=== PATIENT | male | born 1965 | race Caucasian/White ===

== ENCOUNTER 2016-07-22 14:32 | Inpatient (IN) | payer MEDICAID ==
--- NOTE | 2016-07-22 18:36 | ED ---
Abdominal Pain/Male - HPI Summary HPI Summary: Patient presents for delayed evaluation of abdominal pain and constipation. He has been dealing with slowly progressively early satiety, unintentional weight loss, difficulty with BM. Denies systemic symptoms, new or bad foods. Does endorse mother of throat cancer, father of metastatic throat cancer, brother had early colon cancer. Has not had screening endoscopy or medical care for more than 5 years. No allev factors attempted. Abdominal pain is cramping and intermittent. Not food associated. - History of Current Complaint Chief Complaint: EDAbdPain Stated Complaint: ABD PAIN Time Seen by Provider: 07/22/16 18:22 Hx Obtained From: Patient, Family/Sponge Maker - Onset/Duration: Gradual Onset, Lasting Weeks, Still Present Timing: Lasting Weeks Severity Initially: Mild Severity Currently: Moderate Pain Intensity: 2 - Allergies/Home Medications Allergies/Adverse Reactions: Allergies Allergy/AdvReac Type Severity Reaction Status Date / Time No Known Allergies Allergy Verified 07/22/16 18:39 Home Medications: Home Medications NK [No Home Medications Reported] 07/23/16 [History Confirmed 07/23/16] PMH/Surg Hx/FS Hx/Imm Hx Infectious Disease History: No Infectious Disease History: Denies: Traveled Outside the [place] in Last 30 Days Review of Systems Negative: Fever, Chills Cardiovascular: Negative Respiratory: Negative Positive: Abdominal Pain All Other Systems Reviewed And Are Negative: Yes Physical Exam Triage Information Reviewed: Yes Vital Signs On Initial Exam: Initial Vitals Temp Pulse Resp BP Pulse Ox 99.2 F 87 16 158/103 98 07/22/16 14:34 07/22/16 14:34 07/22/16 14:34 07/22/16 14:34 07/22/16 14:34 Vital Signs Reviewed: Yes Appearance: Positive: Well-Appearing, No Pain Distress, Well-Nourished Skin: Positive: Warm, Skin Color Reflects Adequate Perfusion, Dry ENT: Positive: Normal ENT inspection, Hearing grossly normal Neck: Positive: Supple, Nontender, No Lymphadenopathy Respiratory/Lung Sounds: Positive: Clear to Auscultation, Breath Sounds Present Cardiovascular: Positive: Normal, RRR, Pulses are Symmetrical in both Upper and Lower Extremities Abdomen Description: Positive: Nontender, No Organomegaly, Distended, Other: - Palpable LUQ abdominal pain. No stool in rectal vault. Negative: Soft, Bruit, CVA Tenderness (R), CVA Tenderness (L), Guarding, Hernia @, Hepatomegaly Male Genital Exam: Positive: normal genitalia, normal prostate. Negative: lesions, scrotum tenderness (R), scrotum tenderness (L), testicular tenderness ( R), testicular tenderness (L) Musculoskeletal: Positive: Normal, Strength/ROM Intact Neurological: Positive: Normal, Sensory/Motor Intact, Alert, Oriented to Person Place, Time, CN Intact II-III, Reflexes Intact, NV Bundle Intact Distally, Normal Gait Diagnostics - Vital Signs Vital Signs Temp Pulse Resp BP Pulse Ox 07/22/16 18:00 98.6 F 104 20 148/92 99 07/22/16 15:49 99.5 F 111 20 154/98 99 07/22/16 14:34 99.2 F 87 16 158/103 98 - Laboratory Result Diagrams: 07/22/16 21:30 07/22/16 21:30 Lab Statement: Any lab studies that have been ordered have been reviewed, and results considered in the medical decision making process. Abdominal Pain Fem Course/Dx - Diagnoses Differential Diagnosis/HQI/PQRI: Abdominal Aortic Aneurysm, Constipation, Gall Bladder Disease, Pancreatitis, Peptic Ulcer Disease, Other - Unclear if this palpable mass is early malignancy with symptoms. CT for structural cause. Provider Diagnoses: Lymphoma Discharge - Discharge Plan Condition: Good Disposition: ADMITTED TO [facility]
[2016-07-22 21:50] LABS: Hematocrit 49 % (42-52); Hemoglobin 16.1 g/dl (14.0-18.0); Mean Corpuscular HGB Conc 33 g/dl (31-36); Mean Corpuscular Hemoglobin 30 pg (27-31); Mean Corpuscular Volume 91 fL (80-94); Mean Platelet Volume 9 um3 (7.4-10.4); Red Blood Count 5.36 10^6/ul (4.0-5.4); Red Cell Distribution Width 14 % (10.5-15); White Blood Count 7.9 10^3/ul (3.5-10.8)
[2016-07-22 22:01] LABS: Urine Bacteria Absent (Absent); Urine Bilirubin Negative (Negative); Urine Glucose Negative (Negative); Urine Nitrite Negative (Negative)
[2016-07-22 22:03] LABS: Albumin 4.2 g/dL (3.2-5.2); BUN/Creatinine Ratio 10.5 (8-20); Calcium 10.1 mg/dL (8.6-10.3); EGFR African American 121.6 (>60); EGFR Non-African American 94.5 (>60); Globulin 2.9 g/dL (2-4); Potassium 4.1 mmol/L (3.5-5.0); Total Bilirubin 0.6 mg/dL (0.2-1.0); Total Protein 7.1 g/dL (6.4-8.9)
[2016-07-22] MEDS ORDERED: Iohexol 300* (CONTRAST) 10 ML SDV IV ONE (22:37)
[2016-07-23] MEDS ORDERED: Acetaminophen SUPP* 650 MG SUPP PR PRN (01:34)
[2016-07-23] MEDS ORDERED: Analgesic BALM* 114 GM TOPICAL PRN (03:22)
[2016-07-23 05:16] LABS: Carcinoembryonic Antigen 1.9 ng/mL (0.1-5.0)
[2016-07-23] MEDS ORDERED: Heparin VIAL(*) 5000 UNITS/ML VIAL (FIVE THOUSAND) SUBCUT SCH ×2 (06:00→22:00)
--- NOTE | 2016-07-23 07:58 | RAD ---
CLINICAL HISTORY: Abdominal pain COMPARISON: None TECHNIQUE: Multiple contiguous axial CT scans were obtained of the abdomen and pelvis after the administration of intravenous contrast. Coronal and sagittal multiplanar reformations are submitted for review. Oral contrast was administered. ] Images FINDINGS: LUNG BASES: There is bulky paraesophageal lymphadenopathy LIVER: There are transient hepatic attenuation differences involving the left lobe. BILE DUCTS: There is no intrahepatic or extrahepatic biliary dilatation. GALLBLADDER: The gallbladder is incompletely distended. There is a gallstone with gallbladder wall thickening of the fundus PANCREAS: The pancreas is displaced anteriorly by markedly bulky retroperitoneal lymphadenopathy. SPLEEN: The spleen measures 14.5 x 5.9 x 13.1 cm. UPPER GI TRACT: Evaluation of the gastrointestinal tract is limited by incomplete gastric distention. The upper GI tract is unremarkable. SMALL BOWEL AND MESENTERY: The small bowel is normal in contour, course, and caliber. There is no obstruction or dilatation. There is nodularity of the omentum along the inferior abdomen. COLON: There is mucosal thickening of the sigmoid colon. ADRENALS: Normal bilaterally. KIDNEYS: The kidneys are normal in shape, size, contour, and axis. There is no hydronephrosis or nephrolithiasis. BLADDER: The bladder is incompletely distended but is grossly normal. PELVIC ORGANS: The prostate gland is normal. The seminal vesicles are symmetric. AORTA: The aorta is encased by extensive bulky retroperitoneal lymphadenopathy. IVC: The IVC is displaced and partially effaced by extensive bulky retroperitoneal lymphadenopathy. There is questionable filling defect of the left common femoral and external iliac veins. LYMPH NODES: There is a confluent soft tissue mass of the retroperitoneum consistent with massive bulky retroperitoneal lymphadenopathy measuring 15.2 x 12.8 x 14.3 cm in size, approximately. As noted above, there is paraesophageal lymphadenopathy. There are prominent right iliac chain lymph nodes. There are prominent and enlarged mesenteric lymph nodes. ABDOMINAL WALL: There is no evidence for abdominal wall hernia. BONES AND SOFT TISSUES: There are mild diffuse degenerative changes. OTHER: There is trace free fluid within pelvis. There are trace bilateral pleural effusions IMPRESSION: 1. SOFT TISSUE MASS IN THE RETROPERITONEUM MOST CONSISTENT WITH EXTENSIVE BULKY LYMPHADENOPATHY N THE AORTA DISPLACING THE VISCERA. THERE IS ASSOCIATED PARAESOPHAGEAL LYMPHADENOPATHY, ENLARGED MESENTERIC LYMPH NODES, AND PROMINENT ILIAC CHAIN LYMPH NODES. THE APPEARANCE IS MOST SUGGESTIVE OF LYMPHOMA. 2. THERE IS NODULARITY OF THE OMENTUM. GIVEN THE PRESENCE OF THE RETROPERITONEAL LYMPHADENOPATHY, THIS MAY REPRESENT CARCINOMATOSIS. 3. THE SPLEEN IS MILDLY ENLARGED. 4. A GALLSTONE IS NOTED WITH GALLBLADDER WALL THICKENING TOWARDS THE FUNDUS WHICH MAY REPRESENT CHRONIC CHOLECYSTITIS. 5. THERE IS TRACE AMOUNT OF FREE FLUID WITHIN THE PELVIS. THERE ARE TRACE BILATERAL PLEURAL EFFUSIONS. 6. THERE IS QUESTIONABLE FILLING DEFECT OF THE LEFT COMMON FEMORAL AND EXTERNAL ILIAC VEINS. THE DIFFERENTIAL INCLUDES DVT. CONSIDER CORRELATION WITH ULTRASOUND OF THE LEFT LOWER EXTREMITY..
--- NOTE | 2016-07-23 09:17 | HP ---
HISTORY AND PHYSICAL: DATE OF ADMISSION: 07/23/16 He has no primary care physician. CHIEF COMPLAINT: Abdominal pain. HISTORY OF PRESENT ILLNESS: The patient is a 51-year-old gentleman who, for several months, has had discomfort in his abdomen. He was taking Nexium which seemed to help, and also smoking marijuana which seemed to help. However, every time he stopped the Nexium, he said he would have to go to the bathroom and had trouble going because he was constipated. He also notes he's had a significant weight loss since this past summer and he used to weigh 220. He currently weighs 175 pounds. According to his , he cannot even get comfortable at night; he's constantly moving and he has decreased appetite. He used to be able to eat a full T-bone steak and he's yasir if he gets half way through it now. His legs have been achy as well lately too. The patient had a CT scan in the ED which did show a significant abdominal mass. PAST MEDICAL HISTORY: He has no significant past medical history. MEDICATIONS: He is on no medications. ALLERGIES: He has no known drug allergies. FAMILY HISTORY: His mother in his 60s of unknown cause. His father in his 70s of unknown cause. He thinks they both had throat cancer, but not sure. SOCIAL HISTORY: He has been smoking 1 to 2 pack per day for 34 years. No alcohol. Occasional marijuana. 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 His daughter, Monet Zafar, is his healthcare proxy. REVIEW OF SYSTEMS: A 14-point review of systems is completed with the patient. All pertinent positives and negatives are in the history of present illness, otherwise it is negative. PHYSICAL EXAMINATION GENERAL: A very pleasant gentleman lying in bed, in no acute distress, but uncomfortable. VITAL SIGNS: Blood pressure 149/97, temperature 97.8 degrees, heart rate 86 beats per minute, respiratory rate 20 breaths per minute, pulse ox 100%. HEENT: Normocephalic and atraumatic. Pupils are equal, round and reactive to light. Moist mucous membranes. NECK: Supple. No JVD, bruits, palpable thyroid or lymphadenopathy. CHEST: Clear to auscultation and percussion bilaterally. CARDIOVASCULAR: S1, S2 appreciated. Regular rate and rhythm. ABDOMEN: Positive bowel sounds. Protuberant indurated area, consistent with a mass in his mid epigastric area. It is tender. There is no rebound, guarding, or rigidity. EXTREMITIES: No cyanosis, clubbing, or edema. +2 peripheral pulses bilaterally NEUROLOGIC: Alert and oriented x3. Moves all extremities. SKIN: No distinct rashes or abnormalities. LABORATORY DATA: White count 7.9, hemoglobin 6.1, hematocrit 49, platelets 214. His sodium is 137, potassium 4.1, chloride 103, CO2 27, BUN 9, creatinine 0.86, glucose 92. Urinalysis shows +[address] scan of his abdomen and pelvis shows a very large intra-abdominal mass measuring 16 cm x 14 cm x 14 cm. This likely represents a mass of the intra- abdominal lymphadenopathy that emanates in the meso peritoneum and extends to the anterior abdominal wall. Lymphadenopathy extends up to the retrocrural lesions and visualized portions of the mediastinum. There also separate large intraperitoneal lymph nodes. Major diagnostic consideration of lymphoproliferative disease such as lymphoma. The large intraabdominal mass in case is superior mesenteric artery and renal arteries; however, they are not included at this time. The distal portion of the superior vena cava is not well visualized and could not be compressed. Nodularity of the omentum is noted. This could represent a omental metastatic carcinomatosis. Tiny vessels of the anterior peritoneum could represent venous collaterals from venous compression. No bowel obstruction or free air. There is some thickening of the kaufman of the sigmoid colon. Colitis is possible venous congestion. Small amount of fluid in the pelvic gutter and some enhancement of the peritoneal carcinomatosis enhancement. Peritonitis could also look like this. Slightly heterogenous liver. Gall stone noted. Spleen enlarged. Normal adrenal glands. Normal pancreas. Normal kidney, urinary tracts. Trace pleural effusions. ASSESSMENT AND PLAN: 1. Abdominal mass, possibly lymphoma. We will schedule the patient for ultrasound- guided biopsy in the a.m.; likely benefit from oncology consult. We will add LDH to his labs. The patient will need a PCP and oncology likely. 2. FEN. Regular diet. 3. DVT prophylaxis. Heparin subcu. 4. The patient is a full code. TIME SPENT: Over 75 minutes were spent on this H and P, more than 40 minutes of which were spent in direct [id number] contact with the patient in evaluation, physical exam, counseling, and coordination of care. [id number]/[facility] #: [id number] MTDD
--- NOTE | 2016-07-23 09:37 | PN ---
Subjective Date of Service: 07/23/16 Interval History: Patient seen this morning. Reports continued intermittent abdominal discomfort, none presently. Reports 40+ lb weight loss in the last 6-8 months. Denies night sweats. No leg swelling but occasional B/L LE leg pains. Family History: Unchanged from Admission Social History: Unchanged from Admission Past Medical History: Unchanged from Admission Objective Active Medications: Acetaminophen (Tylenol Supp*) 650 mg [place] Q4H PRN Heparin Sodium (Porcine) (Heparin Vial(*)) 5,000 units SUBCUT Q8HR DARRON Multi-Ingredient Liniment/Rub (Moiz Lagunas*) 1 applic TOPICAL Q6H PRN Vital Signs 07/23/16 07/23/16 07/23/16 02:27 02:30 02:37 Temperature 97.8 F Pulse Rate 86 Respiratory 20 20 Rate Blood Pressure 149/97 (mmHg) O2 Sat by Pulse 99 Oximetry 07/23/16 07/23/16 07/23/16 04:01 07:31 08:00 Temperature 98.3 F 97.2 F Pulse Rate 88 41 Respiratory 18 17 18 Rate Blood Pressure 149/97 156/98 (mmHg) O2 Sat by Pulse 95 99 Oximetry Oxygen Devices in Use Now: None Appearance: Middle-aged, M, laying in bed in NAD Eyes: No Scleral Icterus Ears/Nose/Mouth/Throat: Mucous Membranes Moist Neck: NL Appearance and Movements; NL JVP Respiratory: Symmetrical Chest Expansion and Respiratory Effort, Clear to Auscultation Cardiovascular: NL Sounds; No Murmurs; No JVD, RRR Abdominal: - - Palpable abdominal mass, +BS, non-tender Lymphatic: No Cervical Adenopathy, No Axillary Adenopathy, No Inguinal Adenopathy Extremities: No Edema Skin: No Rash or Ulcers Neurological: Alert and Oriented x 3 Result Diagrams: 07/22/16 21:30 07/22/16 21:30 Assess/Plan/Problems-Billing Assessment: Large soft tissue mass and significant LAD concerning for malignancy in a 51 yo M with no significant PMH - Patient Problems (1) Soft tissue mass Current Visit: Yes Comment: w/associated LAD. Awaiting US guided biopsy. Add on LDH. Will consult Oncology. Check LE doppler for ?DVT (2) DVT prophylaxis Current Visit: Yes Comment: HSQ
--- NOTE | 2016-07-23 10:57 | RAD ---
INDICATION: Abdominal mass with vascular compression. Question of thrombosis of the LEFT common external iliac vein on CT. COMPARISON: July 23, 2016 CT abdomen. TECHNIQUE: Hylton scale, color Doppler, and spectral analysis of the deep veins of the LEFT lower extremity. Vessel compression, phasicity, and augmentation assessed. REPORT: The LEFT common femoral, great saphenous, profunda femoral, femoral, popliteal, peroneal, and posterior tibial veins are patent. Patency of the contralateral common femoral vein documented. IMPRESSION: No evidence for LEFT lower extremity deep venous thrombosis.
[2016-07-23] MEDS ORDERED: fentaNYL* 50 MCG/ML 2 ML VIAL (100 MCG VIAL) ONE (13:55)
--- NOTE | 2016-07-23 14:47 | RAD ---
CPT II Codes: 6100F INDICATION: Retroperitoneal mass extending to the anterior abdominal wall. COMPARISON: Same day CT of the abdomen and pelvis The benefits and risks of procedure explained to the patient and the patient signed informed consent. Multiple images of the lower abdomen were obtained. The mass in question was identified and a percutaneous tract was determined. A time out was performed before beginning the procedure. The patient was prepped and draped in the usual sterile fashion. The skin and tissue overlying the lymph node were anesthetized with 1% lidocaine. Percutaneously, a fine needle aspiration was obtained and provided to the attending cytopathologist. The cytopathologist indicated that preliminary evaluation demonstrated adequate sampling for diagnosis. According to the same technique as above additional fine-needle aspirations were acquired 2 more times to assure adequate diagnostic volume. A total of 3 fine-needle aspirations were acquired with sonographic guidance. The post procedure ultrasound demonstrates no evidence for hematoma. The site was dressed with a sterile dressing. The patient tolerated procedure well without incident. IMPRESSION: Uncomplicated ultrasound-guided fine-needle aspiration of abdominal mass.
[2016-07-23 18:01] VITALS: BP 150/83
--- NOTE | 2016-07-23 22:09 | CONS ---
CONSULTATION REPORT: DATE OF CONSULT: 07/23/16 REFERRING PHYSICIAN: Sam Toussaint MD. REASON FOR CONSULTATION: Abdominal mass. HISTORY OF PRESENT ILLNESS: This is a 51-year-old male who presented with approximately 4 months of progressive fatigue, worse over the last several weeks. He also had a 45-pound weight loss over the same period of time. He says he has tried to eat . He has been smoking marijuana, which has helped a little. He has diffuse abdominal pain, treated initially with Nexium but then that stopped working. Pain is made worse by eating. He has also had back pain that has been present for about 6 months and has been progressive. He has no fever, chills, or night sweats, no cough, no shortness of breath. He has not noticed any skin changes. No peripheral lymphadenopathy. PAST MEDICAL HISTORY: None. PAST SURGICAL HISTORY: He had adenoid removed. MEDICATIONS: None. ALLERGIES: None. FAMILY HISTORY: Lot of cancer in the family. Mother, father, brother all of cancer, mostly throat and lung cancer. He is not really sure which one they had. SOCIAL HISTORY: Common law , two children and three grandchildren. He smokes a pack of cigarettes a day and marijuana daily. He does not drink alcohol. He works in [employer], wants to build [employer] teams. REVIEW OF SYSTEMS: As reviewed above, otherwise 14-point review negative. PHYSICAL EXAM: Temperature 98.1, BP 150/83, pulse 93, respirations 12, O2 sat 98%. HEENT: Mucosa moist. No lesions. Neck: With no lymphadenopathy. Lungs : Clear to auscultation bilaterally. No wheezes and he has good air movement. Heart: Regular rhythm. S1, S2. No murmurs or gallops. Abdomen: Large mass , nontender, over 20 cm. No splenomegaly. No palpable liver. Nodes: No peripheral lymphadenopathy. Skin: No rashes. Extremities: She has got +1 clubbing. No cyanosis, edema. Neurologic: CN II through XII intact. Strength 5/5 throughout. Alert and oriented x3. Normal gait. DIAGNOSTIC STUDIES/LAB DATA: Chemistries: Creatinine 0.68. Normal LFTs. Total protein. LDH not sent. He has normal blood counts. Slightly elevated monos. CT scan was reviewed with the patient. He has a large central abdominal pelvic mass. He has disposition of the kidneys with extension of the renal artery and the bowel is stretched around the lesion as well. There is no other clear lymphadenopathy. No lung lesions in the base. ASSESSMENT AND PLAN: A 51-year-old male with large pelvic mass. Highly suspicious for low-grade lymphoma. Differential diagnosis could also include higher intermediate grade lymphoma, other malignancies such as low-grade sarcoma , testicular cancer not likely. 1. He is going to go home from the hospital today, it will take several days to receive results of biopsy. 2. Suspicious enough for low-grade lymphoma. We are going to schedule a bone marrow biopsy for next week. 3. We will follow up in clinic in 2 weeks and plan further care. Potentially chemotherapy starting within the next 1 to 2 weeks. CC: [place] [id number]/[facility] #: [id number] MTDD
--- NOTE | 2016-07-24 13:24 | DS ---
DISCHARGE SUMMARY: DATE OF ADMISSION: 07/23/16 DATE OF DISCHARGE: 07/23/16 PRINCIPAL DISCHARGE DIAGNOSES: Abdominal mass and lymphadenopathy concerning for malignancy. STUDIES DONE DURING HOSPITALIZATION: CT abdomen and pelvis. Impression: Soft tissue mass in the r etroperitoneum, most consistent with extensive bulky lymphadenopathy in the aorta displacing the vis cera. There is associated paraesophageal lymphadenopathy, enlarged mesenteric lymph nodes, and prom inent iliac chain lymph nodes. The appearance is most suggestive of lymphoma. There is nodularity of the omentum given the presence of the retroperitoneal lymphadenopathy, this may represent a carci nomatosis. Spleen is mildly enlarged. A gallstone is noted in the gallbladder with wall thickening towards the fundus, which may represent chronic cholecystitis. There is trace amount of free fluid within the pelvis. There are trace bilateral pleural effusions. There is questionable filling defe ct in the left common femoral and external iliac veins. The differential includes DVT, consider clarissa elation with ultrasound of the left lower extremity. Left lower extremity Doppler. Impression: No evidence for left lower extremity deep venous thrombosis. DISCHARGE MEDICATION REGIMEN: None. HPI AND HOSPITAL SUMMARY: Please see the full history and physical by Dr. Alin Bro for full deta ils. Briefly, Mr. Rush is a 51-year-old man with no past medical history and little contact with [facility], who presents to the hospital with abdominal discomfort and significant weight loss as wel l as early satiety. The patient had a CT scan as above, which showed a large abdominal mass with ext ensive lymphadenopathy. The patient underwent an ultrasound-guided biopsy. His LDH was normal as w ere the majority of his labs. The patient was seen briefly by Dr. Perez and will follow up in the inic with Dr. Zambrano. He was also set up with a new PCP, Dr. Marin, with an appointment on . The patient's biopsy results are pending at this time. He will be discharged home and can follow up as an outpatient. TIME SPENT: Total time spent on this discharge was 45 minutes. This is a summary of the hospitaliz ation, please see the full medical record for further details. [id number]/[facility] #: [id number]
== END 2016-07-23 19:05 | disposition home or self-care (01) | DRG 681 ==
LOC: ED 14:32 → MED 07-23 01:52
PROVIDERS: ADMIT Internal Medicine; ATTEND Hospitalist
PROC: 07BC3ZX Excision of Pelvis Lymphatic, Percutaneous Approach, Diagnostic (ICD-10-PCS; principal; 2016-07-23)
DX: C85.93 Non-Hodgkin lymphoma, unspecified, intra-abdominal lymph nodes (principal); F17.210 Nicotine dependence, cigarettes, uncomplicated; R19.07 Generalized intra-abdominal and pelvic swelling, mass and lump; R59.1 Generalized enlarged lymph nodes; Z80.0 Family history of malignant neoplasm of digestive organs
CPT/HCPCS: 36415; 49180; 74177; 76942; 80053; 81003; 81015; 82378; 83615; 83690; 85025; 85610; 85730; 88172; 88173; 88184; 88185; 88188; 88305; 88341; 88342; J1644; J3010; Q9967

== ENCOUNTER 2016-08-11 05:54 | Day surgery (SDC) | payer MEDICAID, OTHER ==
[2016-08-11] MEDS ORDERED: Famotidine IV* 10 MG/ML 2 ML (20 mg) IV ONE (06:00)
[2016-08-11] MEDS ORDERED: Buffered Lidocaine 1% SYR 3ML* 3 ML/SYR SYRINGE INTRADERM ONE (06:00)
[2016-08-11] MEDS ORDERED: Famotidine IV* 10 MG/ML 2 ML (20 mg) ONE ×2 (06:06)
[2016-08-11] MEDS ORDERED: Lidocain 1% EPI 1:100,000 * 30 ML MDV ONE ×2 (07:03)
[2016-08-11] MEDS ORDERED: Propofol* 10 MG/ML 20 ML BTL IV PUSH ONE ×2 (07:34)
[2016-08-11] MEDS ORDERED: Midazolam* 1 MG/ML 5 ML VIAL (5 MG) ONE ×2 (07:34)
[2016-08-11] MEDS ORDERED: fentaNYL* 50 MCG/ML 2 ML VIAL (100 MCG VIAL) ONE ×2 (07:34)
[2016-08-11] MEDS ORDERED: Ondansetron INJ* 2 MG/ML VIAL ONE ×2 (07:34)
[2016-08-11] MEDS ORDERED: Dexamethasone IV* 4 MG/ML 1 ML (4 MG) ONE ×2 (07:34)
[2016-08-11] MEDS ORDERED: Lidocaine 2% PF * 5 ML VIAL ONE ×2 (07:34)
[2016-08-11] MEDS ORDERED: KETAMINE HCL* 50 MG/ML 10 ML VIAL ONE ×2 (07:34)
[2016-08-11] MEDS ORDERED: ceFAZolin 2 GM PREMIX (*) 2 GM/50 ML BAG IVPB ONE ×2 (07:37)
[2016-08-11] MEDS ORDERED: oxyCODONE/Acetamin 5/325 MG* TAB PO PRN (08:18)
[2016-08-11] MEDS ORDERED: Acetaminophen TAB* 325 MG PO PRN (08:18)
[2016-08-11] MEDS ORDERED: DiMENhydriNATE IV* 50 MG/ML VIAL IV PUSH PRN (08:18)
--- NOTE | 2016-08-11 08:35 | SURGPN ---
Brief Operative Note - Surgery Procedures: Procedures Pre-OP Diagnoses: Lymphoma Post-op Diagnosis: same Procedure: Insertion of powerport, needle in Surgeon: Bhavna Asst: none Anethesia: local, FLORENCE Rothman EBL: minimal IVF: minimal Specimen: none Drains: none 8Fr single lumen power port via R SCV
[2016-08-11 09:15] VITALS: BP 140/93
--- NOTE | 2016-08-11 09:16 | RAD ---
INDICATION: Power port catheter placement. COMPARISON: There are no prior studies available for comparison. TECHNIQUE: 14 seconds of intermittent fluoroscopic guidance were provided and 6 spot films of the chest centered on the right side in the operating room. FINDINGS: The films demonstrate placement of a PowerPort central venous catheter over guidewire. On the last image the catheter tip projects over the region of the right atrium. IMPRESSION: INTRAOPERATIVE CONTROL FILMS. CPT II Codes: 6045F
--- NOTE | 2016-08-12 00:37 | OP ---
CC: Dr. Ralph Perez; [facility] OPERATIVE REPORT: DATE OF PROCEDURE: 08/11/16 DATE OF : 69 SURGEON: Dr. Huggins PRINTER HELPER: None. ANESTHESIOLOGIST: Dr. Rothman. ANESTHESIA: Local MAC. PRE-OP DIAGNOSIS: Lymphoma. POST-OP DIAGNOSIS: Lymphoma. OPERATIVE PROCEDURE: Insertion of PowerPort needle in. ESTIMATED BLOOD LOSS: Minimal blood loss. IV FLUIDS: Minimal crystalloid fluid given. DRAINS: 8-Nigerian PowerPort placed via the right subclavian vein. DESCRIPTION OF PROCEDURE: The patient was identified in the preoperative area, marked, brought to [facility] OR, placed on the operating table in supine position. Preoperative antibiotics were given. Seque ntial devices were placed on bilateral lower extremities. General sedation was given. The patient's right upper chest was prepped and draped after clipping of hair and a time-out was performed. The patient was placed in a reverse Trendelenburg. The subclavian vein was accessed with needle aft er injection of lidocaine for a local block. Wire was inserted under fluoroscopy, was ensured to be in the superior vena cava. Next, an incision inferior to the wire was made. A pocket was made inferior to this and then the wi re was brought in through this incision. Next, the vein was dilated with the given dilators under fluoroscopy. Spilt-away catheter was inser vel and then the 8-Nigerian tubing placed. It was sized up with fluoroscopy, cut to size, and connect ed to the pre-flushed PowerPort along with the tub. It was sutured into the pocket with 0 Surgipro sutures at the inferior aspect, medial aspect, and at the hub, flushed easily after aspiration of bl ood and wound was then irrigated and the skin reapproximated with 3-0 Polysorb followed by 4-0 Monoc ryl subcuticular sutures. Sterile dressing was applied. The port was then accessed. Aspiration of blood was then performed and it was injected with heparinized saline and the Kenny needle was left in. The patient was woken up in the OR and transferred to the PACU in stable condition. [id number]/[facility] #: [id number]
== END 2016-08-11 09:16 | disposition home or self-care (01) ==
LOC: OR 05:54
PROVIDERS: ATTEND Surgery
DX: C82.03 Follicular lymphoma grade I, intra-abdominal lymph nodes (principal); F17.210 Nicotine dependence, cigarettes, uncomplicated
CPT/HCPCS: 71010; 76000; C1788; J0690; J1100; J1642; J2250; J2405; J2704; J3010

== ENCOUNTER 2016-10-26 12:48 | Day surgery (SDC) | payer OTHER ==
[2016-10-26 13:59] VITALS: BP 100/79
--- NOTE | 2016-10-26 14:19 | RAD ---
HISTORY: Status post right thoracentesis COMPARISONS: CT dated October 21, 2016 VIEWS:1: Single frontal portable view of the chest at 1:55 PM FINDINGS: LINES AND TUBES: A right-sided chest port is noted from subclavian approach with the tip overlying the cavoatrial junction CARDIOMEDIASTINAL SILHOUETTE: The cardiomediastinal silhouette is normal for portable technique. PLEURA: The costophrenic angles are sharp. No pleural abnormalities are noted. There is no appreciable pneumothorax. LUNG PARENCHYMA: The lungs are clear. ABDOMEN: The upper abdomen is clear. There is no subphrenic gas. BONES AND SOFT TISSUES: No bone or soft tissue abnormalities are noted. IMPRESSION: NO ACTIVE CARDIOPULMONARY DISEASE. NO APPRECIABLE PNEUMOTHORAX. LINES AND TUBES ABOVE.
[2016-10-26 14:39] LABS: Body Fluid WBC 522 /mcL
[2016-10-26 14:40] LABS: Body Fluid Appearance Bloody
[2016-10-26 15:09] LABS: Body Fluid Total Cells Counted 100
--- NOTE | 2016-10-27 03:23 | OP ---
CC: Zev Ireland MD; Ralph Perez MD OPERATIVE REPORT: DATE OF OPERATION: 10/26/16 DATE OF : 69 SURGEON: Zev Ireland MD COMPO CONVEYOR OPERATOR: None. ANESTHESIOLOGIST: None. PRE-OP DIAGNOSIS: Right pleural effusion. POST-OP DIAGNOSIS: Right pleural effusion. OPERATIVE PROCEDURE: Right posterior thoracentesis. DESCRIPTION OF PROCEDURE: The patient is in the outpatient procedure room, sitting at the bedside t able. The right posterior chest is percussed and marked and prepped and draped in a sterile fashion . Local infiltrative anesthesia is administered and approximately the tenth interspace was entered. The fluid was slightly pink in color, slightly cloudy, a little like cream tomato soup kind of loo k. It was hooked to the suction bottle and approximately 2.5 L of fluid was forthcoming. He tolera vel it well with mild cough. The catheter was removed, bandage was placed. Followup chest x-ray is obtained and looks good and he is discharged home. He tolerated the procedure well. Specimens wer e sent to the laboratory for analysis. [id number]/[facility] #: [id number]
[2016-10-29 00:15] LABS: Glucose, BF 112 mg/dL; Total Protein, BF 3.9 g/dL
== END 2016-10-26 14:15 | disposition home or self-care (01) ==
LOC: OR 12:48
PROVIDERS: ATTEND Surgery
DX: J90 Pleural effusion, not elsewhere classified (principal); C85.90 Non-Hodgkin lymphoma, unspecified, unspecified site; R06.00 Dyspnea, unspecified
CPT/HCPCS: 36415; 71010; 82042; 82945; 83615; 84157; 84315; 87070; 87205; 88112; 89051

== ENCOUNTER → 2016-11-09 12:11 | Day surgery (SDC) | payer MEDICAID ==
[2016-11-09 13:34] VITALS: BP 113/80
[2016-11-09 14:03] LABS: Body Fluid WBC 664 /mcL
[2016-11-09 14:04] LABS: Body Fluid Appearance Bloody
--- NOTE | 2016-11-09 14:21 | RAD ---
INDICATION: Right pleural effusion, status post thoracentesis. COMPARISON: Comparison is made with a prior study from one day earlier. TECHNIQUE: A portable view of the chest was obtained. FINDINGS: There is a power port central venous catheter present on the right side. The catheter tip is located within the right atrium. The heart is within normal limits in size. The lungs are clear. There is a very small right pleural effusion which has decreased in size from the prior study consistent with the patient's prior procedure. No pneumothorax is seen. IMPRESSION: STATUS POST THORACENTESIS, NO EVIDENCE FOR PNEUMOTHORAX.
[2016-11-09 14:29] LABS: Body Fluid Total Cells Counted 100
--- NOTE | 2016-11-09 23:33 | OP ---
CC: Zev Ireland MD; Ralph Perez MD * DATE OF OPERATION: 11/09/16 - [facility] DATE OF : 69 SURGEON: Dr. Ireland. HACK SAW OPERATOR: None. ANESTHESIOLOGIST: None. PRE-OP DIAGNOSIS: Right pleural effusion. POST-OP DIAGNOSIS: Right pleural effusion. OPERATIVE PROCEDURE: Right posterior thoracentesis. DESCRIPTION OF PROCEDURE: The patient was sitting at the bedside in the local outpatient department, leaning over the bedside table. The chest was percussed and auscultated and there were obvious decreased breath sounds and dullness to percussion over the lower third of the right chest. This was compatible with the effusion seen on the chest x-ray of yesterday. Therefore, it was decided that right posterior thoracentesis will be carried out. The area was prepped with antiseptic and draped in a sterile fashion. Local infiltrative anesthesia with 1% plain lidocaine was administered and the same site was utilized as the previous procedure and identical appearing fluid was forthcoming. Suction bottle was utilized, 2500 mL was withdrawn. He tolerated this with little bit of cough, looked really good afterwards, catheter was removed, bandage was placed, and an x- ray will be obtained and he will be discharged thereafter. [id number]/[facility] #: [id number] MTDD
[2016-11-10 15:04] LABS: Total Protein, BF 3.5 g/dL
== END | disposition home or self-care (01) ==
LOC: OR 12:11
PROVIDERS: ATTEND Surgery
PROC: 0W993ZZ Drainage of Right Pleural Cavity, Percutaneous Approach (ICD-10-PCS; principal; 2016-11-09 13:00)
DX: J90 Pleural effusion, not elsewhere classified (principal); C82.03 Follicular lymphoma grade I, intra-abdominal lymph nodes; F17.200 Nicotine dependence, unspecified, uncomplicated
CPT/HCPCS: 36415; 71010; 82042; 83615; 84157; 87070; 87205; 88112; 89051

== ENCOUNTER 2016-11-23 12:38 | Day surgery (SDC) | payer OTHER ==
[2016-11-23 13:41] VITALS: BP 114/83
--- NOTE | 2016-11-23 14:02 | RAD ---
INDICATION: Status post thoracentesis COMPARISON: Previous day chest x-ray that shows a large right-sided pleural effusion. TECHNIQUE: Single AP portable view of the chest was obtained. FINDINGS: Image quality is compromised due to the relative inferiority of a portable chest x-ray. There is a right chest subclavian vein Mediport with a tip terminating at the cavoatrial junction. The heart and mediastinum exhibit normal size and contour. There has been interval reduction of the density obscuring the right lung base with now only a small amount of costophrenic angle blunting on the right indicating a small residual effusion. Visualized bones are normal for the patient's age. IMPRESSION: Interval reduction of the right-sided pleural effusion with evidence of only a small residual amount of fluid.
--- NOTE | 2016-11-24 05:34 | OP ---
CC: Dr. Ireland; Dr. Ralph Perez OPERATIVE REPORT: DATE OF OPERATION: 11/23/16 DATE OF : 69 SURGEON: Zev Ireland MD OUTDOOR ADVENTURE INSTRUCTOR: None. ANESTHESIOLOGIST: None. PRE-OP DIAGNOSIS: Recurrent right pleural effusion. POST-OP DIAGNOSIS: Recurrent right pleural effusion. OPERATIVE PROCEDURE: Right posterior thoracentesis. DESCRIPTION OF PROCEDURE: The patient was sitting at the bedside, leaning over the bedside table. The right posterior chest was examined and percussed and compared with the x-ray and confirmed that the right side was the involved side. The back was prepped with antiseptic and draped in a sterile fashion. Local infiltrative anesthesia was administered and the chest was entered in approximally t he 9th interspace, same place as before, and the same-appearing pleural fluid was obtained. A sucti on bottle was utilized and a total of 3300 mL was obtained. He tolerated this with mild cough. He was feeling much better afterwards. The needle was removed and the bandage placed. He will have a chest x-ray and be discharged thereafter. [id number]/[facility] #: [id number]
== END 2016-11-23 13:37 | disposition home or self-care (01) ==
LOC: OR 12:38
PROVIDERS: ATTEND Surgery
DX: J90 Pleural effusion, not elsewhere classified (principal); F17.210 Nicotine dependence, cigarettes, uncomplicated
CPT/HCPCS: 71010

== ENCOUNTER 2017-01-20 07:06 | Day surgery (SDC) | payer OTHER ==
[~2017-01-20 07:06] MED LIST: Buffered Lidocaine 0.9% SYRIN* 5 ML/SYR SYRINGE INTRADERM ONE; Famotidine IV* 10 MG/ML 2 ML (20 mg) IV ONE; ceFAZolin 2 GM PREMIX (*) 100 ML IVPB ONE
[2017-01-20] MEDS ORDERED: Buffered Lidocaine 0.9% SYRIN* 5 ML/SYR SYRINGE ONE (07:10)
[2017-01-20] MEDS ORDERED: Famotidine IV* 10 MG/ML 2 ML (20 mg) ONE (07:10)
[2017-01-20] MEDS ORDERED: Midazolam* 1 MG/ML 5 ML VIAL (5 MG) ONE (08:50)
[2017-01-20] MEDS ORDERED: fentaNYL* 50 MCG/ML 2 ML VIAL (100 MCG VIAL) ONE (08:50)
[2017-01-20] MEDS ORDERED: Propofol* 10 MG/ML 20 ML BTL IV PUSH ONE (08:57)
[2017-01-20] MEDS ORDERED: Lidocaine 2% PF * 5 ML VIAL ONE (08:57)
[2017-01-20] MEDS ORDERED: PROCHLORPERAZINE INJ 5 MG/ML 2 ML VIAL IV PRN (09:04)
[2017-01-20] MEDS ORDERED: fentaNYL* 50 MCG/ML 2 ML VIAL (100 MCG VIAL) IV PRN (09:04)
[2017-01-20] MEDS ORDERED: HYDROcodone/ACETAMIN 5-325 MG* 1 TAB PO PRN (09:04)
[2017-01-20] MEDS ORDERED: oxyCODONE/Acetamin 5/325 MG* TAB PO PRN (09:04)
[2017-01-20] MEDS ORDERED: Ondansetron INJ* 2 MG/ML VIAL ONE (09:25)
--- NOTE | 2017-01-20 10:27 | RAD ---
HISTORY: Pleurx catheter removal COMPARISONS: January 06, 2017 VIEWS:1: Single frontal portable view of the chest at 10:15 AM FINDINGS: LINES AND TUBES: There is been interval removal of right-sided chest port CARDIOMEDIASTINAL SILHOUETTE: The cardiomediastinal silhouette is normal for portable technique. PLEURA: There is a small right pleural effusion, decreased from January 06, 2017. LUNG PARENCHYMA: The lungs are clear. ABDOMEN: The upper abdomen is clear. There is no subphrenic gas. BONES AND SOFT TISSUES: No bone or soft tissue abnormalities are noted. IMPRESSION: SMALL RIGHT PLEURAL EFFUSION
[2017-01-20 10:54] VITALS: BP 113/85
--- NOTE | 2017-01-20 16:49 | OP ---
CC: Dr. Perez * DATE OF OPERATION: 01/20/17 - [facility] DATE OF : 69 SURGEON: Zev Ireland MD. COST ACCOUNTING MANAGER: None. ANESTHESIOLOGIST: Dr. Miller. ANESTHESIA: LMAC anesthesia. PRE-OP DIAGNOSIS: Lymphoma with chronic right pleural effusion. POST-OP DIAGNOSIS: Lymphoma with chronic right pleural effusion. OPERATIVE PROCEDURE: Placement of right PleurX catheter and removal of right chest PowerPort. DESCRIPTION OF PROCEDURE: The patient was supine on the operative table. After adequate intravenous sedation, compression stockings, Fiorella Hugger warmer, and intravenous antibiotics, the right chest was prepped with antiseptic, draped in a sterile fashion. Local infiltrative anesthesia was administered. Preoperative ultrasound had been carried out to identify large pocket of fluid. This was in the posterior axillary line approximately in the eighth interspace and the fluid pocket was at least 5 cm in depth underneath the ribs there. So, local anesthetic was administered. A skinny digital editor needle was used to identify the fluid. Guidewire was passed through the catheter. Incision was created and dilator was utilized and then the Peel-Away introducer was placed. The PleurX catheter was then passed through the Peel-Away introducer and had been previously tunneled. The cuff was just at the exit site. The site at the entry was closed in layers with 4-0 Vicryl. The exit site silk suture was used to secure the catheter. Sterile dressing was placed. Steri-Strips were placed over the entry site. The catheter was connected to low wall suction and approximately 3 L of fluid was forthcoming. This was then disconnected. It was capped off and placed under sterile dressing. The port pocket site was then addressed. Local anesthetic was administered. The previous incision was reentered. The port was dissected free and removed in its entirety. Again, closure was accomplished in layers with 4-0 Vicryl followed by Steri-Strips. He tolerated the procedure well. He was brought to Recovery in good condition. No complications. Drain is PleurX catheter. Sponge and instrument counts were correct. Estimated blood loss is 10 mL. [id number]/[facility] [place] #: [id number] [facility]
== END 2017-01-20 11:14 | disposition home or self-care (01) ==
LOC: OR 07:06
PROVIDERS: ATTEND Surgery
DX: C82.90 Follicular lymphoma, unspecified, unspecified site (principal); J90 Pleural effusion, not elsewhere classified; Z45.2 Encounter for adjustment and management of vascular access device
CPT/HCPCS: 71010; 88300; J0690; J2250; J2405; J2704; J3010

== ENCOUNTER 2018-01-18 10:28 | Day surgery (SDC) | payer OTHER ==
[~2018-01-18 10:28] MED LIST changes: -Famotidine IV* 10 MG/ML 2 ML (20 mg) IV ONE; -ceFAZolin 2 GM PREMIX (*) 100 ML IVPB ONE
[2018-01-18] MEDS ORDERED: Acetaminophen TAB* 325 MG PO PRN (11:22)
[2018-01-18] MEDS ORDERED: Naloxone* 0.4 MG/ML 1 ML VIAL IV PRN (11:22)
[2018-01-18] MEDS ORDERED: Ondansetron INJ* 2 MG/ML VIAL IV PRN (11:22)
[2018-01-18] MEDS ORDERED: HYDROcodone/ACETAMIN 5-325 MG* 1 TAB PO PRN (11:22)
[2018-01-18] MEDS ORDERED: DiMENhydriNATE IV* 50 MG/ML VIAL IV PUSH PRN (11:22)
[2018-01-18] MEDS ORDERED: fentaNYL* 50 MCG/ML 2 ML VIAL (100 MCG VIAL) IV PRN (11:22)
[2018-01-18] MEDS ORDERED: PROCHLORPERAZINE INJ 5 MG/ML 2 ML VIAL IV PRN (11:22)
[2018-01-18] MEDS ORDERED: Midazolam* 1 MG/ML 2 ML VIAL (2 MG) ONE (11:35)
[2018-01-18] MEDS ORDERED: fentaNYL* 50 MCG/ML 2 ML VIAL (100 MCG VIAL) ONE (11:35)
[2018-01-18] MEDS ORDERED: Lidocaine 2% EPI 1:200000 MPF*10-20 ML VIAL ONE (11:42)
[2018-01-18] MEDS ORDERED: Lidocaine 2% PF * 5 ML VIAL ONE (12:20)
[2018-01-18] MEDS ORDERED: Propofol* 10 MG/ML 20 ML BTL IV PUSH ONE (12:39)
[2018-01-18] MEDS ORDERED: Famotidine IV* 10 MG/ML 2 ML (20 mg) ONE (12:39)
[2018-01-18] MEDS ORDERED: Dexamethasone IV* 4 MG/ML 1 ML (4 MG) ONE (12:39)
[2018-01-18 13:55] VITALS: BP 134/84
--- NOTE | 2018-01-19 02:54 | OP ---
OPERATIVE REPORT: DATE OF OPERATION: 01/18/18 - [facility] DATE OF : 69 SURGEON: Rc Carrillo MD ANESTHESIOLOGIST: Calos Price MD ANESTHESIA: General. PRE-OP DIAGNOSIS: Right enlarged lymph node with a history of lymphoma. POST-OP DIAGNOSIS: Right enlarged lymph node with a history of lymphoma. OPERATIVE PROCEDURE: Excisional biopsy of right submandibular lymph node. INDICATIONS: This 52-year-old gentleman with a previous history of lymphoma, persistent enlarged lymph node, somewhat suspicious. DESCRIPTION OF PROCEDURE: The patient was taken to the operating room. General anesthetic was given. The patient was intubated with LMA. Right neck was then prepped and draped in the usual sterile fashion. Curvilinear incision made approximately 1.5 cm from the angle of the mandible. Subplatysmal flaps were elevated. Sharp and blunt dissection was carried out. The facial vessels were identified and retained, but dissected away from the lymph node. Careful blunt and sharp dissection at the level of the lymph node was carried out. Once the lymph node was removed, it was sent fresh for pathology. The wound was copiously irrigated. The wound was then closed in 2 layers using Vicryl, Steri-Strips and a small dressing was applied. The patient was awakened and sent to the recovery room in stable condition. Instrument and sponge counts correct. Blood loss minimal. [id number]/[facility] #: [id number] MTDD
== END 2018-01-18 14:23 | disposition home or self-care (01) ==
LOC: OR 10:28
PROVIDERS: ATTEND Otolaryngology
DX: C82.31 Follicular lymphoma grade IIIa, lymph nodes of head, face, and neck (principal); Z72.0 Tobacco use; Z85.028 Personal history of other malignant neoplasm of stomach
CPT/HCPCS: 88184; 88187; 88188; 88189; 88305; 88333; 88341; 88342; 88360; J1100; J2250; J2704; J3010

== ENCOUNTER → 2018-03-16 06:04 | Day surgery (SDC) | payer OTHER ==
[~2018-03-16 06:04] MED LIST changes: +Buffered Lidocaine 0.9% SYRIN* 5 ML/SYR SYRINGE ONE; +Dexamethasone IV* 4 MG/ML 1 ML (4 MG) ONE; +Dexamethasone TAB* 4 MG ONE; +Dexamethasone TAB* 4 MG PO ONE; +DiMENhydriNATE IV* 50 MG/ML VIAL IV PUSH PRN; +Famotidine IV* 10 MG/ML 2 ML (20 mg) IV ONE; +Famotidine IV* 10 MG/ML 2 ML (20 mg) ONE; +KETAMINE HCL* 50 MG/ML 10 ML VIAL ONE; +Lidocaine 1% INJ* 10 MG/ML 30 ML SDV ONE; +Lidocaine 2% PF * 5 ML VIAL ONE; +Midazolam* 1 MG/ML 5 ML VIAL (5 MG) ONE; +Naloxone* 0.4 MG/ML 1 ML VIAL IV PRN; +Ondansetron ODT TAB* 4 MG ONE; +Ondansetron TAB* 4 MG PO ONE; +PROCHLORPERAZINE INJ 5 MG/ML 2 ML VIAL IV PRN; +Propofol* 500 MG/50 ML BTL ONE; +ceFAZolin 2 GM PREMIX in ORs 2 GM/50 ML BAG IVPB ONE; +cefTRIAXone(*) 2 GM ADDV.VIAL IVPB ONE; +fentaNYL* 50 MCG/ML 2 ML VIAL (100 MCG VIAL) IV PRN; +fentaNYL* 50 MCG/ML 2 ML VIAL (100 MCG VIAL) ONE; +oxyCODONE/Acetamin 5/325 MG* TAB PO PRN
--- NOTE | 2018-03-16 08:46 | RAD ---
Indication: Post port placement. Follicular lymphoma. Comparison: January 16, 2018 Technique: Upright AP 0825 hours Report: Tip of RIGHT chest port is at the level of the inferior segment of the superior vena cava directed central. Negative for pneumothorax. Mild predominant linear opacities at the mid to lower lung zones are most suspicious for subsegmental atelectasis given decreased lung volumes compared with the January 16, 2018 exam. Clear pleural spaces. The heart, pulmonary vasculature, and mediastinal contours are unremarkable. IMPRESSION: #. RIGHT chest port in place. #. Mild bilateral subsegmental atelectasis.
--- NOTE | 2018-03-16 09:03 | RAD ---
INDICATION: PowerPort placement. Lymphoma. Technique: 10 seconds of?fluoroscopy?was provided?for the physician proceduralist. REPORT: Spot image documents the tip of the RIGHT chest port at level of the superior vena cava RIGHT atrial junction directed central. IMPRESSION: Procedural control films. CPT II Codes: G9500
[2018-03-16 09:17] VITALS: BP 142/97
--- NOTE | 2018-03-16 22:19 | OP ---
CC: Zev Ireland MD; Dr. Perez OPERATIVE REPORT: DATE OF OPERATION: 03/16/18 DATE OF : 69 SURGEON: Zev Ireland MD TRANSPORTER DRIVER: None. ANESTHESIOLOGIST: Dr. Horton. ANESTHESIA: LMAC anesthesia PRE-OP DIAGNOSIS: Lymphoma. POST-OP DIAGNOSIS: Lymphoma. OPERATIVE PROCEDURE: Placement of right subclavian 8-Malaysian PowerPort. DESCRIPTION OF PROCEDURE: The patient was supine on the operating table. After adequate intravenous sedation, compression stockings, Fiorella Hugger warmer, and intravenous antibiotics, the right neck and chest regions were clipped and prepped with antiseptic, draped in a sterile fashion. Local infiltra tive anesthesia was administered and the previous incision was reentered. Dissection was carried out creat an inferior pocket. Subclavian venipuncture was carried out, guidewire was passed and the Pee l-Away introducer was used to deliver the catheter to a length of 23 cm. It was attached to the port , which was sutured in the pocket with 2-0 Prolene. The pocket was closed with 3-0 and 5-0 Vicryl fo llowed by Steri-Strips. The port has good blood return and it is accessed and was flushed with hepari n and a Tegaderm dressing was placed. He tolerated the procedure well and was brought to Recovery in good condition. No complications. No drains. No pathologic specimen. Sponge and instrument count correct. Estimated blood loss is 10 mL. [id number]/[facility] #: [id number]
== END | disposition home or self-care (01) ==
LOC: OR 06:04
PROVIDERS: ATTEND Surgery
DX: C82.93 Follicular lymphoma, unspecified, intra-abdominal lymph nodes (principal); Z72.0 Tobacco use
CPT/HCPCS: 71045; 76000; A9270-GY; C1788; J0690; J0696; J1100; J1642; J2250; J2704; J3010; J8540

== ENCOUNTER 2018-11-10 09:53 | Emergency (ER) | payer OTHER ==
[2018-11-10] MEDS ORDERED: Tetan/Diph/Pertus SYR(Tdap)* 0.5 ML SYR(BOOSTRIX) use SYR IM ONE (10:01)
[2018-11-10] MEDS ORDERED: Lidocaine 1%* 5 ML VIAL INJ ONE ×2 (10:02→10:14)
--- NOTE | 2018-11-10 10:03 | ED ---
Laceration/Wound HPI - HPI Summary HPI Summary: Patient is a 53-year-old male who presents emergency department for laceration to his right hand that occurred just prior to arrival. Patient states he was working on an old car when his hand slipped and was cut by broken windshield. Patient unaware of last tetanus immunization. Past medical history of lymphoma. Currently not receiving treatment. Symptoms are mild in severity. No current modifying factors. - History of Current Complaint Stated Complaint: CUT ON RT HAND PER PT Time Seen by Provider: 11/10/18 10:00 Hx Obtained From: Patient Pain Intensity: 0 - Additional Pertinent History Primary Care Physician: [id number] - Allergy/Home Medications Allergies/Adverse Reactions: Allergies Allergy/AdvReac Type Severity Reaction Status Date / Time No Known Allergies Allergy Verified 11/10/18 09:58 PMH/Surg Hx/FS Hx/Imm Hx Previously Healthy: Yes Endocrine/Hematology History: Denies: Hx Diabetes Cardiovascular History: Denies: Hx Hypertension, Other Cardiovascular Problems/Disorders Respiratory History: Reports: Hx Pulmonary Edema - follicular lymphoma, Other Respiratory Problems/Disorders - RT THORA 11/09/16 Denies: Hx Asthma GI History: Reports: Hx Gastroesophageal Reflux Disease, Other GI Disorders - stomach cancer History: Denies: Hx Renal Disease, Other Problems/Disorders Musculoskeletal History: Reports: Hx Arthritis - knees and hands, Hx Back Problems Sensory History: Reports: Hx Contacts or Glasses Denies: Hx Hearing Aid Opthamlomology History: Reports: Hx Contacts or Glasses Neurological History: Denies: Other Neuro Impairments/Disorders - Cancer History Cancer Type, Location and Year: follicular lymphoma Hx Chemotherapy: Yes - 2016 - Surgical History Surgery Procedure, Year, and Place: power port-RCW; placement and removal. thoracentesis-right lung. T & A Hx Anesthesia Reactions: No Infectious Disease History: No Infectious Disease History: Denies: Traveled Outside the [place] in Last 30 Days - Family History Known Family History: Positive: Non-Contributory - Social History Occupation: Employed Full-time Lives: With Family Alcohol Use: None Substance Use Type: Reports: Marijuana Substance Use Comment - Amount & Last Used: for pain and appetite Hx Tobacco Use: Yes Smoking Status (MU): Light Every Day Tobacco Smoker Type: Cigarettes Amount Used/How Often: working on quitting by next Length of Time of Smoking/Using Tobacco: 36 years Have You Smoked in the Last Year: Yes Review of Systems Positive: Other - laceration to right hand Neurological: Negative Negative: Weakness, Paresthesia, Numbness All Other Systems Reviewed And Are Negative: Yes Physical Exam Triage Information Reviewed: Yes Vital Signs On Initial Exam: Initial Vitals Temp Pulse Resp BP Pulse Ox 97.3 F 87 19 138/84 96 11/10/18 09:55 11/10/18 09:55 11/10/18 09:55 11/10/18 09:55 11/10/18 09:55 Vital Signs Reviewed: Yes Appearance: Positive: Well-Appearing - Pt. sitting on side of bed in NAD. Family member present. Skin: Positive: Warm, Dry Head/Face: Positive: Normal Head/Face Inspection Eyes: Positive: Normal, EOMI, GERONIMO Neck: Positive: Supple Musculoskeletal: Positive: Other - 3 cm linear laceration noted to the dorsum of right hand. An extensor tendon is visable and is intact. Full ROM of all digits with extension. No bony tenderness. Neurological: Positive: Normal, CN Intact II-III Psychiatric: Positive: Affect/Mood Appropriate Procedures - Laceration/Wound Repair 1 Location: upper extremity - right hand Length, Depth and Shape: 3cm linear Betadine Prep?: No - hibiclens Irrigated w/ Saline (ccs): 250 Laceration/Wound Explored: clean Closure: Single Layer Debridement: minimal Suture Type: Nylon Number of Sutures: 5 Layer Closure?: No Sterile Dressing Applied?: Yes Diagnostics - Vital Signs Vital Signs Temp Pulse Resp BP Pulse Ox 11/10/18 09:55 97.3 F 87 19 138/84 96 - Laboratory Lab Statement: Any lab studies that have been ordered have been reviewed, and results considered in the medical decision making process. Laceration Repair Course/Dx - Course Course Of Treatment: Patient presenting with simple hand laceration. Tetanus was updated. Wound was extensively irrigated and cleaned. No tendon injury identified. Wound repaired as noted above. Suture removal in 10 days. To keep wound clean and dry. Prophylactically treat with Keflex. Advised to return to ER for redness, swelling or drainage from wound. Patient understands and agrees with plan. - Differential Dx Differental Diagnoses: Foreign Body, Laceration, Puncture Wound, Tendon Laceration - Clinical Impression Provider Diagnoses: Hand laceration Discharge - Sign-Out/Discharge Documenting (check all that apply): Patient Departure Patient Received Moderate/Deep Sedation with Procedure: No - Discharge Plan Condition: Improved Disposition: HOME Prescriptions: Cephalexin CAP* [Keflex CAP*] 500 mg PO BID #20 cap Patient Education Materials: Care For Your Stitches (ED) Referrals: Ralph Perez MD [Primary Care Provider] - Additional Instructions: Suture removal in 10 days Keep wound clean and dry Take antibiotic as directed Return to ER for redness, swelling, or drainage from wound - Billing Disposition and Condition Condition: IMPROVED Disposition: Home
[2018-11-10 10:50] VITALS: BP 124/87
== END 2018-11-10 10:49 | disposition home or self-care (01) ==
LOC: ED 09:53
DX: S61.411A Laceration without foreign body of right hand, initial encounter (principal); W25.XXXA Contact with sharp glass, initial encounter; Y92.9 Unspecified place or not applicable; Z23 Encounter for immunization; Z85.72 Personal history of non-Hodgkin lymphomas; F17.210 Nicotine dependence, cigarettes, uncomplicated
CPT/HCPCS: 12002; 90471; 90715; 99282

== ENCOUNTER 2022-01-20 14:49 | Inpatient (IN) ==
[2022-01-20] MEDS ORDERED: NS 0.9% 1000 ml BAG 1,000 ML IV ONE (15:30)
[2022-01-20 15:56] LABS: Hematocrit 29 % (42-52); Hemoglobin 9.6 g/dL (14.0-18.0); Mean Corpuscular HGB Conc 33 g/dL (31-36); Mean Corpuscular Hemoglobin 32 pg (27-31); Mean Corpuscular Volume 95 fL (80-94); Mean Platelet Volume 9.5 fL (7.4-10.4); Platelet Count 123 10^3/uL (150-450); Red Blood Count 3.03 10^6 /uL (4.18-5.48); Red Cell Distribution Width 16 % (10-15); White Blood Count 9.2 10^3/uL (3.5-10.8)
[2022-01-20 16:44] LABS: Albumin 2.4 g/dL (3.2-5.2); Albumin/Globulin Ratio 1.2 (1-3); Calcium 7.6 mg/dL (8.6-10.3); Magnesium 1.6 mg/dL (1.9-2.7); Potassium 3.3 mmol/L (3.5-5.0); Total Bilirubin 0.6 mg/dL (0.2-1.0); Total Protein 4.4 g/dL (6.4-8.9); eGFR CKD-EPI 98.9 (>60)
[2022-01-20] MEDS: NS 0.9% 1000 ml BAG 2,000 ML IV ONE ×2 (16:57→18:36)
[2022-01-20 16:58] LABS: ABS Lymphocytes 0.1 10^3/ul (1.0-4.8); ABS Monocytes 0.5 10^3/ul (0-0.8); ABS Neutrophils 8.5 10^3/ul (1.5-7.7); Lymphocyte % 1.2 %
[2022-01-20] MEDS ORDERED: Magnesium Sulfate 2 gm BAG 2 GM/50 ML BAG IVPB ONE (17:04)
[2022-01-20 17:27] LABS: Urine Appearance Clear; Urine Bilirubin Negative (Negative); Urine Blood Negative (Negative); Urine Color Yellow; Urine Glucose Negative (Negative); Urine Ketones Negative (Negative); Urine Nitrite Negative (Negative); Urine Protein 1+ (30 mg/dL) (Negative); Urine Specific Gravity 1.025 (1.005-1.030); Urine Urobilinogen 0.2 (Negative) (Negative)
[2022-01-20 17:43] LABS: Urine Bacteria Absent (Absent); Urine Red Blood Cell Absent (Absent); Urine White Blood Cell Trace(0-5/hpf) (Absent)
[2022-01-20] MEDS: KCL 20 MEQ/100 ML IVPREMIX 20 MEQ/100 ML BAG IV SCH ×2 (18:19→21:43)
[2022-01-20] MEDS ORDERED: Remdesivir 100 mg Vial 200 MG in NS 0.9% 250 ml 210 ML IV ONE (19:51)
[2022-01-20] MEDS ORDERED: cefTRIAXone 1 gm/50 mL D5W 1 GM/50 ML BAG IV ONE (19:58)
[2022-01-20] MEDS ORDERED: Dexamethasone IV 4 MG/ML VIAL 1 ml VIAL IV SLOW PU SCH (21:00)
[2022-01-20 21:01] LABS: INR 1.45 (0.89-1.11)
[2022-01-21 05:00] LABS: Hematocrit 28 % (42-52); Hemoglobin 9.4 g/dL (14.0-18.0); Mean Corpuscular HGB Conc 34 g/dL (31-36); Mean Corpuscular Hemoglobin 32 pg (27-31); Mean Corpuscular Volume 93 fL (80-94); Mean Platelet Volume 8.3 fL (7.4-10.4); Platelet Count 103 10^3/uL (150-450); Red Blood Count 2.99 10^6 /uL (4.18-5.48); Red Cell Distribution Width 16 % (10-15); White Blood Count 8.4 10^3/uL (3.5-10.8)
[2022-01-21 05:06] LABS: INR 1.61 (0.89-1.11)
[2022-01-21 05:42] LABS: Albumin 2.3 g/dL (3.2-5.2); Albumin/Globulin Ratio 1.2 (1-3); Calcium 7.1 mg/dL (8.6-10.3); Globulin 1.9 g/dL (2-4); Total Bilirubin 0.6 mg/dL (0.2-1.0); Total Protein 4.2 g/dL (6.4-8.9); eGFR CKD-EPI 108.1 (>60)
[2022-01-21] MEDS ORDERED: Dextrose 50% Syringe 50 ml 25 GM/50 ML SYRINGE IV PUSH PRN (07:47)
[2022-01-21] MEDS: Aspirin EC 325 mg TAB.EC PO SCH (08:03)
[2022-01-21] MEDS: Mometasone/Formoter 200/5 MDI INH SCH ×2 (08:06→20:50)
[2022-01-21 08:27] LABS: Magnesium 1.8 mg/dL (1.9-2.7)
[2022-01-21] MEDS ORDERED: Magnesium Sulfate 2 gm BAG 2 GM/50 ML BAG IVPB ONE (08:32)
[2022-01-21] MEDS ORDERED: Cefepime ADVAN 1 GM in NS 0.9% 50 ML 50 ML IVPB SCH (09:00)
[2022-01-21] MEDS ORDERED: Cefepime 1 GM in Dextrose 1 GM/50 ML BAG IV SCH (09:41)
[2022-01-21] MEDS: Cefepime 1 GM in Dextrose 1 GM/50 ML BAG IV SCH ×2 (10:01→20:16)
[2022-01-21] MEDS: Enoxaparin 40 MG/0.4 ML SYR SUBCUT SCH (12:00)
[2022-01-21] MEDS: methylPREDNISolone SOD SUCC 40 mg/ml 1 ml VIAL IV SCH (12:00)
[2022-01-21] MEDS: Benzocaine/Menthol LOZ PO PRN (17:22)
[2022-01-21] MEDS: Remdesivir 100 mg Vial 100 MG in NS 0.9% 250 ml 230 ML IV SCH (20:15)
[2022-01-21] MEDS ORDERED: cefTRIAXone 1 gm/50 mL D5W 1 GM/50 ML BAG IV SCH (22:00)
[2022-01-22] MEDS ORDERED: Norepinephrine 16MCG/ML BAGD5W 4,000 MCG/250 ML BAG IV ONE (02:06)
[2022-01-22] MEDS: Remdesivir 100 mg Vial 100 MG in NS 0.9% 250 ml 230 ML IV SCH ×2 (02:15→22:54)
[2022-01-22] MEDS: Norepinephrine 16MCG/ML BAGD5W 4,000 MCG/250 ML BAG IV SCH (02:15)
[2022-01-22 05:31] LABS: ABS Monocytes 0.3 10^3/ul (0-0.8); ABS Neutrophils 10.5 10^3/ul (1.5-7.7); Hematocrit 30 % (42-52); Hemoglobin 9.9 g/dL (14.0-18.0); Lymphocyte % 0.4 %; Mean Corpuscular HGB Conc 33 g/dL (31-36); Mean Corpuscular Hemoglobin 31 pg (27-31); Mean Corpuscular Volume 93 fL (80-94); Mean Platelet Volume 8.7 fL (7.4-10.4); Platelet Count 115 10^3/uL (150-450); Red Blood Count 3.23 10^6 /uL (4.18-5.48); Red Cell Distribution Width 16 % (10-15); White Blood Count 10.9 10^3/uL (3.5-10.8)
[2022-01-22 05:38] LABS: INR 1.97 (0.89-1.11)
[2022-01-22 06:14] LABS: Albumin 2.3 g/dL (3.2-5.2); Albumin/Globulin Ratio 1.3 (1-3); Calcium 7.5 mg/dL (8.6-10.3); Globulin 1.8 g/dL (2-4); Potassium 3.7 mmol/L (3.5-5.0); Total Bilirubin 0.8 mg/dL (0.2-1.0); Total Protein 4.1 g/dL (6.4-8.9); eGFR CKD-EPI 114.1 (>60)
[2022-01-22] MEDS: Mometasone/Formoter 200/5 MDI INH SCH ×2 (07:07→21:57)
[2022-01-22] MEDS ORDERED: Potassium Chlor 20 meq TAB.ER PO ONE (07:45)
[2022-01-22] MEDS: Aspirin EC 325 mg TAB.EC PO SCH (08:24)
[2022-01-22] MEDS: methylPREDNISolone SOD SUCC 40 mg/ml 1 ml VIAL IV SCH (08:25)
[2022-01-22] MEDS: Cefepime 1 GM in Dextrose 1 GM/50 ML BAG IV SCH ×2 (10:00→22:56)
[2022-01-22] MEDS ORDERED: Dextrose 50% Syringe 50 ml 25 GM/50 ML SYRINGE IV PUSH PRN (10:43)
[2022-01-22 14:02] LABS: Glucose Confirmatory 418 mg/dL (70-100)
[2022-01-22] MEDS: Enoxaparin 40 MG/0.4 ML SYR SUBCUT SCH (14:12)
[2022-01-22] MEDS ORDERED: Insulin GLARGINE 100 un/ml 10 ml VIAL SUBCUT ONE (16:56)
[2022-01-22 17:45] LABS: Glucose Confirmatory 440 mg/dL (70-100)
[2022-01-22] MEDS: Benzocaine/Menthol LOZ PO PRN (21:38)
[2022-01-23] MEDS ORDERED: Dextrose 50% Syringe 50 ml 25 GM/50 ML SYRINGE IV PUSH PRN ×2 (02:45→17:28)
[2022-01-23] MEDS: Norepinephrine 16MCG/ML BAGD5W 4,000 MCG/250 ML BAG IV SCH ×2 (02:52→12:17)
[2022-01-23 06:20] LABS: ABS Monocytes 0.2 10^3/ul (0-0.8); ABS Neutrophils 6.4 10^3/ul (1.5-7.7); Hematocrit 28 % (42-52); Hemoglobin 9.4 g/dL (14.0-18.0); INR 1.84 (0.89-1.11); Lymphocyte % 0.7 %; Mean Corpuscular HGB Conc 34 g/dL (31-36); Mean Corpuscular Hemoglobin 31 pg (27-31); Mean Corpuscular Volume 92 fL (80-94); Nucleated Red Blood Cells % 0.1; Red Blood Count 3.04 10^6 /uL (4.18-5.48); Red Cell Distribution Width 16 % (10-15); White Blood Count 6.7 10^3/uL (3.5-10.8)
[2022-01-23 06:45] LABS: Albumin 2.1 g/dL (3.2-5.2); Albumin/Globulin Ratio 1.2 (1-3); Calcium 7.4 mg/dL (8.6-10.3); Globulin 1.7 g/dL (2-4); Magnesium 1.9 mg/dL (1.9-2.7); Potassium 3.7 mmol/L (3.5-5.0); Total Bilirubin 0.6 mg/dL (0.2-1.0); Total Protein 3.8 g/dL (6.4-8.9); eGFR CKD-EPI 116.5 (>60)
[2022-01-23] MEDS: Cefepime 1 GM in Dextrose 1 GM/50 ML BAG IV SCH ×2 (08:24→22:45)
[2022-01-23] MEDS: Aspirin EC 325 mg TAB.EC PO SCH (08:24)
[2022-01-23] MEDS: methylPREDNISolone SOD SUCC 40 mg/ml 1 ml VIAL IV SCH (08:25)
[2022-01-23 08:28] LABS: Mean Platelet Volume 9.8 fL (7.4-10.4); Platelet Count 94 10^3/uL (150-450)
[2022-01-23] MEDS ORDERED: Potassium Chlor 20 meq TAB.ER PO ONE (08:44)
[2022-01-23] MEDS ORDERED: Insulin GLARGINE 100 un/ml 10 ml VIAL SUBCUT SCH (09:00)
[2022-01-23] MEDS: Enoxaparin 40 MG/0.4 ML SYR SUBCUT SCH (11:02)
[2022-01-23] MEDS: Mometasone/Formoter 200/5 MDI INH SCH ×2 (11:12→23:02)
[2022-01-23] MEDS ORDERED: Magnesium Sulfate 2 gm BAG 2 GM/50 ML BAG IVPB ONE (12:31)
[2022-01-23] MEDS ORDERED: KCL 20 MEQ/100 ML IVPREMIX 20 MEQ/100 ML BAG IV ONE (12:34)
[2022-01-23 17:19] LABS: Glucose Confirmatory 473 mg/dL (70-100)
[2022-01-23] MEDS: Remdesivir 100 mg Vial 100 MG in NS 0.9% 250 ml 230 ML IV SCH (22:45)
[2022-01-23] MEDS: Insulin Infusion 100unit/100mL 100 UNIT/100 ML BAG IV SCH (22:50)
[2022-01-23] MEDS: Insulin GLARGINE 100 un/ml 10 ml VIAL SUBCUT SCH (22:57)
[2022-01-23 23:19] LABS: Glucose Confirmatory 472 mg/dL (70-100)
[2022-01-24] MEDS: Norepinephrine 16MCG/ML BAGD5W 4,000 MCG/250 ML BAG IV SCH ×4 (01:23→21:00)
[2022-01-24] MEDS: Insulin Infusion 100unit/100mL 100 UNIT/100 ML BAG IV SCH ×2 (02:08→17:35)
[2022-01-24] MEDS ORDERED: Insulin GLARGINE 100 un/ml 10 ml VIAL SUBCUT ONE (05:29)
[2022-01-24 05:53] LABS: ABS Monocytes 0.2 10^3/ul (0-0.8); ABS Neutrophils 4.3 10^3/ul (1.5-7.7); Eosinophil % 0.1 %; Hematocrit 27 % (42-52); Lymphocyte % 0.7 %; Mean Corpuscular HGB Conc 34 g/dL (31-36); Mean Corpuscular Hemoglobin 31 pg (27-31); Mean Corpuscular Volume 93 fL (80-94); Mean Platelet Volume 10.4 fL (7.4-10.4); Platelet Count 82 10^3/uL (150-450); Red Blood Count 2.91 10^6 /uL (4.18-5.48); Red Cell Distribution Width 16 % (10-15); White Blood Count 4.5 10^3/uL (3.5-10.8)
[2022-01-24 06:06] LABS: Albumin 2.1 g/dL (3.2-5.2); Albumin/Globulin Ratio 1.2 (1-3); Calcium 7.2 mg/dL (8.6-10.3); Globulin 1.7 g/dL (2-4); Total Bilirubin 0.6 mg/dL (0.2-1.0); Total Protein 3.8 g/dL (6.4-8.9); eGFR CKD-EPI 119.8 (>60)
[2022-01-24] MEDS: Mometasone/Formoter 200/5 MDI INH SCH ×2 (07:22→23:35)
[2022-01-24] MEDS: methylPREDNISolone SOD SUCC 40 mg/ml 1 ml VIAL IV SCH (08:37)
[2022-01-24] MEDS: Aspirin EC 325 mg TAB.EC PO SCH (08:37)
[2022-01-24] MEDS: Insulin GLARGINE 100 un/ml 10 ml VIAL SUBCUT SCH (09:51)
[2022-01-24] MEDS: Cefepime 1 GM in Dextrose 1 GM/50 ML BAG IV SCH ×2 (09:54→22:00)
[2022-01-24] MEDS: Enoxaparin 40 MG/0.4 ML SYR SUBCUT SCH (11:35)
[2022-01-24] MEDS ORDERED: Atropine 0.1 MG/ML 10 ml SYR (1 mg) ONE (13:56)
[2022-01-24] MEDS ORDERED: Atropine 1 MG/ML INJ 1 ML VIAL IV PUSH ONE (14:16)
[2022-01-24] MEDS ORDERED: Atropine 0.1 MG/ML 10 ml SYR (1 mg) IV PUSH PRN (14:28)
[2022-01-24] MEDS ORDERED: Atropine 0.1 MG/ML 10 ml SYR (1 mg) IV PUSH ONE (15:20)
[2022-01-24 15:36] LABS: Calcium 7.3 mg/dL (8.6-10.3); Magnesium 1.8 mg/dL (1.9-2.7); Potassium 4.3 mmol/L (3.5-5.0); eGFR CKD-EPI 118.4 (>60)
[2022-01-24 16:10] LABS: High Sensitivity Troponin 1 Hr 22 pg/mL (<20)
[2022-01-24] MEDS: Nystatin SUSPENSION 100,000 UNITS/ML UDC SWISH SPIT SCH ×2 (17:03→20:00)
[2022-01-24] MEDS: Benzocaine/Menthol LOZ PO PRN (18:13)
[2022-01-25] MEDS: Benzocaine/Menthol LOZ PO PRN (00:09)
[2022-01-25 04:18] LABS: ABS Lymphocytes 0.1 10^3/ul (1.0-4.8); ABS Monocytes 0.2 10^3/ul (0-0.8); ABS Neutrophils 3.7 10^3/ul (1.5-7.7); Eosinophil % 0.5 %; Hematocrit 30 % (42-52); Hemoglobin 9.9 g/dL (14.0-18.0); Lymphocyte % 1.8 %; Mean Corpuscular HGB Conc 33 g/dL (31-36); Mean Corpuscular Hemoglobin 30 pg (27-31); Mean Corpuscular Volume 93 fL (80-94); Nucleated Red Blood Cells % 0.3; Platelet Count 90 10^3/uL (150-450); Red Blood Count 3.25 10^6 /uL (4.18-5.48); Red Cell Distribution Width 16 % (10-15); White Blood Count 4.1 10^3/uL (3.5-10.8)
[2022-01-25 04:46] LABS: Albumin 2.3 g/dL (3.2-5.2); Albumin/Globulin Ratio 1.3 (1-3); Calcium 7.5 mg/dL (8.6-10.3); Globulin 1.8 g/dL (2-4); Magnesium 1.7 mg/dL (1.9-2.7); Potassium 3.9 mmol/L (3.5-5.0); Total Bilirubin 0.7 mg/dL (0.2-1.0); Total Protein 4.1 g/dL (6.4-8.9); eGFR CKD-EPI 121.2 (>60)
[2022-01-25] MEDS ORDERED: Magnesium Sulfate 2 gm BAG 2 GM/50 ML BAG IVPB ONE (05:10)
[2022-01-25] MEDS: Mometasone/Formoter 200/5 MDI INH SCH ×2 (07:14→20:22)
[2022-01-25] MEDS ORDERED: Magnesium Sulfate IV 3 GM in NS 0.9% 100 ml BAG 100 ML IVPB ONE (07:45)
[2022-01-25] MEDS: Nystatin SUSPENSION 100,000 UNITS/ML UDC SWISH SPIT SCH ×4 (08:51→20:57)
[2022-01-25] MEDS: methylPREDNISolone SOD SUCC 40 mg/ml 1 ml VIAL IV SCH (08:51)
[2022-01-25] MEDS: Aspirin EC 325 mg TAB.EC PO SCH (08:51)
[2022-01-25] MEDS ORDERED: Dextrose 50% Syringe 50 ml 25 GM/50 ML SYRINGE IV PUSH PRN ×3 (08:54→17:21)
[2022-01-25] MEDS: Cefepime 1 GM in Dextrose 1 GM/50 ML BAG IV SCH ×2 (09:15→21:15)
[2022-01-25] MEDS ORDERED: Magnesium Sulfate IV 2 GM in NS 0.9% 100 ml BAG 100 ML IVPB ONE (09:30)
[2022-01-25] MEDS ORDERED: Magnesium Sulfate 2 GM IV (Premix) IVPB ONE (10:00)
[2022-01-25] MEDS: Enoxaparin 40 MG/0.4 ML SYR SUBCUT SCH (10:05)
[2022-01-25 10:29] LABS: Phosphorus 1.6 mg/dL (2.5-5.0)
[2022-01-25] MEDS ORDERED: Sodium Phosphate IV 15 MMOLE in NS 0.9% 250 ml 250 ML IV ONE (11:15)
[2022-01-25 11:33] LABS: TSH Ultra Thyroid Stim Horm 3.55 mcIU/mL (0.34-5.60)
[2022-01-25 11:35] LABS: Free T3 2.4 pg/mL (2.5-3.9); Free T4 1.2 ng/dL (0.61-1.12)
[2022-01-25] MEDS: Norepinephrine 16MCG/ML BAGD5W 4,000 MCG/250 ML BAG IV SCH (12:16)
[2022-01-25] MEDS ORDERED: Insulin GLARGINE 100 un/ml 10 ml VIAL SUBCUT ONE (16:41)
[2022-01-25] MEDS ORDERED: Norepinephrine 16MCG/ML BAG NS 4,000 MCG/250 ML BAG IV SCH (17:00)
[2022-01-25] MEDS ORDERED: Insulin Infusion 100unit/100mL 100 UNIT/100 ML BAG IV SCH (18:00)
[2022-01-25 22:55] LABS: Calcium 7.3 mg/dL (8.6-10.3); Potassium 4.2 mmol/L (3.5-5.0); eGFR CKD-EPI 122.7 (>60)
[2022-01-26 04:28] LABS: Hematocrit 24 % (42-52); Hemoglobin 7.8 g/dL (14.0-18.0); Mean Corpuscular HGB Conc 33 g/dL (31-36); Mean Corpuscular Hemoglobin 31 pg (27-31); Mean Corpuscular Volume 95 fL (80-94); Red Blood Count 2.51 10^6 /uL (4.18-5.48); Red Cell Distribution Width 17 % (10-15); White Blood Count 2.8 10^3/uL (3.5-10.8)
[2022-01-26 04:43] LABS: ABS Monocytes 0.1 10^3/ul (0-0.8); ABS Neutrophils 2.6 10^3/ul (1.5-7.7); Lymphocyte % 1.6 %; Mean Platelet Volume 9.3 fL (7.4-10.4); Nucleated Red Blood Cells % 0.4; Platelet Count 71 10^3/uL (150-450)
[2022-01-26 04:46] LABS: Blood Urea Nitrogen 14 mg/dL (6-24); CO2 Carbon Dioxide 26 mmol/L (22-32); Calcium 7.5 mg/dL (8.6-10.3); Chloride 100 mmol/L (101-111); Glucose 99 mg/dL (70-100); Magnesium 2.2 mg/dL (1.9-2.7); Sodium 135 mmol/L (135-145); eGFR CKD-EPI 124.3 (>60)
[2022-01-26 05:19] LABS: Anion Gap 9 mmol/L (2-11)
[2022-01-26] MEDS ORDERED: Morphine 4 MG/ML VIAL (1 ml) ONE (07:51)
[2022-01-26] MEDS: PHENYLEPHRINE DRIP IVPREMIX 50 MG/250 ML BAG IV SCH ×2 (08:00→21:47)
[2022-01-26] MEDS ORDERED: PHENYLEPHRINE DRIP IVPREMIX 50 MG/250 ML BAG IV ONE (08:02)
[2022-01-26] MEDS: Mometasone/Formoter 200/5 MDI INH SCH ×2 (08:41→20:57)
[2022-01-26 08:43] LABS: Phosphorus 2.2 mg/dL (2.5-5.0); Potassium Redraw 4.7 mmol/L (3.5-5.0)
[2022-01-26] MEDS ORDERED: Iohexol 350 (CONTRAST) 500 ML MDV IV ONE (08:47)
[2022-01-26] MEDS ORDERED: Sodium Phosphate IV 15 MMOLE in NS 0.9% 250 ml 250 ML IV ONE (08:59)
[2022-01-26] MEDS ORDERED: Insulin Infusion 100unit/100mL 100 UNIT/100 ML BAG IV SCH ×2 (09:00→12:40)
[2022-01-26] MEDS ORDERED: Heparin 5000 UNITS/ML 1 mL VIAL ONE (09:27)
[2022-01-26] MEDS ORDERED: Heparin DRIP 25,000 UNITS BAG 25,000 UNITS/500 ML BAG ONE (09:27)
[2022-01-26] MEDS: Aspirin EC 325 mg TAB.EC PO SCH (09:59)
[2022-01-26] MEDS: Heparin 5000 UNITS/ML 1 mL VIAL IV PRN (10:00)
[2022-01-26] MEDS: Nystatin SUSPENSION 100,000 UNITS/ML UDC SWISH SPIT SCH ×4 (10:00→21:17)
[2022-01-26] MEDS: Heparin DRIP 25,000 UNITS BAG 25,000 UNITS/500 ML BAG IV SCH (10:10)
[2022-01-26] MEDS: Cefepime 1 GM in Dextrose 1 GM/50 ML BAG IV SCH ×2 (10:17→21:47)
[2022-01-26 11:29] LABS: High Sensitivity Troponin 1 Hr 20 pg/mL (<20)
[2022-01-26] MEDS ORDERED: Dextrose 50% Syringe 50 ml 25 GM/50 ML SYRINGE IV PUSH PRN (21:27)
[2022-01-27] MEDS: Heparin 5000 UNITS/ML 1 mL VIAL IV PRN (00:57)
[2022-01-27 06:12] LABS: ABS Monocytes 0.1 10^3/ul (0-0.8); ABS Neutrophils 3.5 10^3/ul (1.5-7.7); Eosinophil % 1.1 %; Hematocrit 27 % (42-52); Hemoglobin 9.2 g/dL (14.0-18.0); Lymphocyte % 0.9 %; Mean Corpuscular HGB Conc 34 g/dL (31-36); Mean Corpuscular Hemoglobin 31 pg (27-31); Mean Corpuscular Volume 93 fL (80-94); Mean Platelet Volume 9.9 fL (7.4-10.4); Platelet Count 69 10^3/uL (150-450); Red Blood Count 2.95 10^6 /uL (4.18-5.48); Red Cell Distribution Width 16 % (10-15); White Blood Count 3.8 10^3/uL (3.5-10.8)
[2022-01-27 06:56] LABS: Calcium 7.8 mg/dL (8.6-10.3); Magnesium 1.9 mg/dL (1.9-2.7)
[2022-01-27] MEDS: Heparin DRIP 25,000 UNITS BAG 25,000 UNITS/500 ML BAG IV SCH (07:01)
[2022-01-27 07:08] LABS: Phosphorus 2.4 mg/dL (2.5-5.0); eGFR CKD-EPI 125.1 (>60)
[2022-01-27] MEDS: Aspirin EC 325 mg TAB.EC PO SCH (07:59)
[2022-01-27] MEDS: Nystatin SUSPENSION 100,000 UNITS/ML UDC SWISH SPIT SCH ×4 (07:59→20:40)
[2022-01-27] MEDS: Mometasone/Formoter 200/5 MDI INH SCH ×2 (08:00→20:46)
[2022-01-27] MEDS ORDERED: Sodium Phosphate IV 15 MMOLE in NS 0.9% 250 ml 250 ML IV ONE (08:00)
[2022-01-27] MEDS: Cefepime 1 GM in Dextrose 1 GM/50 ML BAG IV SCH (08:54)
[2022-01-27] MEDS: Enoxaparin 80 MG/0.8 ML SYR SUBCUT SCH ×2 (12:23→20:37)
[2022-01-27] MEDS: Ciprofloxacin 400mg IVPREMIX 400 MG/200 ML BAG IVPB SCH ×2 (12:39→20:23)
[2022-01-27] MEDS: PHENYLEPHRINE DRIP IVPREMIX 50 MG/250 ML BAG IV SCH ×2 (13:36→16:41)
[2022-01-28] MEDS: Ciprofloxacin 400mg IVPREMIX 400 MG/200 ML BAG IVPB SCH ×3 (04:30→20:11)
[2022-01-28 05:24] LABS: ABS Lymphocytes 0.1 10^3/ul (1.0-4.8); ABS Monocytes 0.1 10^3/ul (0-0.8); ABS Neutrophils 2.5 10^3/ul (1.5-7.7); Eosinophil % 0.8 %; Hematocrit 29 % (42-52); Hemoglobin 9.5 g/dL (14.0-18.0); Mean Corpuscular HGB Conc 33 g/dL (31-36); Mean Corpuscular Hemoglobin 31 pg (27-31); Mean Corpuscular Volume 93 fL (80-94); Mean Platelet Volume 9.6 fL (7.4-10.4); Nucleated Red Blood Cells % 0.1; Platelet Count 66 10^3/uL (150-450); Red Blood Count 3.13 10^6 /uL (4.18-5.48); Red Cell Distribution Width 17 % (10-15); White Blood Count 2.7 10^3/uL (3.5-10.8)
[2022-01-28 05:52] LABS: Calcium 7.8 mg/dL (8.6-10.3); Magnesium 1.7 mg/dL (1.9-2.7); Phosphorus 2.7 mg/dL (2.5-5.0); Potassium 4.2 mmol/L (3.5-5.0); eGFR CKD-EPI 120.5 (>60)
[2022-01-28] MEDS ORDERED: Magnesium Sulfate IV 3 GM in NS 0.9% 100 ml BAG 100 ML IVPB ONE (07:00)
[2022-01-28] MEDS: Mometasone/Formoter 200/5 MDI INH SCH ×2 (07:32→18:36)
[2022-01-28] MEDS: Enoxaparin 80 MG/0.8 ML SYR SUBCUT SCH ×2 (08:03→21:52)
[2022-01-28] MEDS: Nystatin SUSPENSION 100,000 UNITS/ML UDC SWISH SPIT SCH ×4 (08:03→21:52)
[2022-01-28] MEDS: Aspirin EC 325 mg TAB.EC PO SCH (08:04)
[2022-01-29] MEDS: Ciprofloxacin 400mg IVPREMIX 400 MG/200 ML BAG IVPB SCH ×3 (03:42→19:17)
[2022-01-29 05:44] LABS: ABS Monocytes 0.1 10^3/ul (0-0.8); ABS Neutrophils 2.3 10^3/ul (1.5-7.7); Eosinophil % 0.4 %; Hematocrit 27 % (42-52); Hemoglobin 8.7 g/dL (14.0-18.0); Lymphocyte % 1.8 %; Mean Corpuscular HGB Conc 33 g/dL (31-36); Mean Corpuscular Hemoglobin 30 pg (27-31); Mean Corpuscular Volume 93 fL (80-94); Mean Platelet Volume 10.1 fL (7.4-10.4); Nucleated Red Blood Cells % 0.1; Platelet Count 64 10^3/uL (150-450); Red Blood Count 2.89 10^6 /uL (4.18-5.48); Red Cell Distribution Width 16 % (10-15); White Blood Count 2.5 10^3/uL (3.5-10.8)
[2022-01-29 06:07] LABS: Blood Urea Nitrogen 10 mg/dL (6-24); CO2 Carbon Dioxide 26 mmol/L (22-32); Calcium 7.6 mg/dL (8.6-10.3); Chloride 98 mmol/L (101-111); Glucose 115 mg/dL (70-100); Sodium 131 mmol/L (135-145); eGFR CKD-EPI 124.3 (>60)
[2022-01-29 06:15] LABS: Anion Gap 7 mmol/L (2-11)
[2022-01-29 07:20] LABS: Phosphorus 2.9 mg/dL (2.5-5.0); Potassium Redraw 4.4 mmol/L (3.5-5.0)
[2022-01-29] MEDS: Mometasone/Formoter 200/5 MDI INH SCH ×2 (07:50→19:32)
[2022-01-29] MEDS: Nystatin SUSPENSION 100,000 UNITS/ML UDC SWISH SPIT SCH ×4 (08:51→20:24)
[2022-01-29] MEDS: Aspirin EC 325 mg TAB.EC PO SCH (08:54)
[2022-01-29] MEDS: Enoxaparin 80 MG/0.8 ML SYR SUBCUT SCH ×2 (10:35→19:16)
[2022-01-30] MEDS: Ciprofloxacin 400mg IVPREMIX 400 MG/200 ML BAG IVPB SCH (03:48)
[2022-01-30 05:30] LABS: ABS Lymphocytes 0.1 10^3/ul (1.0-4.8); ABS Monocytes 0.1 10^3/ul (0-0.8); ABS Neutrophils 3.1 10^3/ul (1.5-7.7); Eosinophil % 0.3 %; Hematocrit 27 % (42-52); Hemoglobin 8.8 g/dL (14.0-18.0); Lymphocyte % 2.1 %; Mean Corpuscular HGB Conc 32 g/dL (31-36); Mean Corpuscular Hemoglobin 30 pg (27-31); Mean Corpuscular Volume 92 fL (80-94); Mean Platelet Volume 8.8 fL (7.4-10.4); Platelet Count 62 10^3/uL (150-450); Red Blood Count 2.93 10^6 /uL (4.18-5.48); Red Cell Distribution Width 16 % (10-15); White Blood Count 3.3 10^3/uL (3.5-10.8)
[2022-01-30 06:02] LABS: Calcium 7.4 mg/dL (8.6-10.3); Magnesium 1.8 mg/dL (1.9-2.7); Potassium 3.8 mmol/L (3.5-5.0); eGFR CKD-EPI 120.5 (>60)
[2022-01-30] MEDS ORDERED: Magnesium Sulfate 2 gm BAG 2 GM/50 ML BAG IVPB ONE (07:50)
[2022-01-30] MEDS: Mometasone/Formoter 200/5 MDI INH SCH ×2 (07:54→19:10)
[2022-01-30] MEDS: Enoxaparin 80 MG/0.8 ML SYR SUBCUT SCH (08:50)
[2022-01-30] MEDS: Nystatin SUSPENSION 100,000 UNITS/ML UDC SWISH SPIT SCH ×4 (08:51→20:15)
[2022-01-30] MEDS: Aspirin EC 325 mg TAB.EC PO SCH (08:51)
[2022-01-31 02:19] LABS: Calcium 7.6 mg/dL (8.6-10.3); Magnesium 2.1 mg/dL (1.9-2.7); Potassium 4.2 mmol/L (3.5-5.0)
[2022-01-31 03:35] LABS: eGFR CKD-EPI 123.5 (>60)
[2022-01-31 06:08] LABS: ABS Lymphocytes 0.1 10^3/ul (1.0-4.8); ABS Monocytes 0.1 10^3/ul (0-0.8); ABS Neutrophils 3.4 10^3/ul (1.5-7.7); Eosinophil % 0.2 %; Hematocrit 26 % (42-52); Hemoglobin 8.6 g/dL (14.0-18.0); Lymphocyte % 1.4 %; Mean Corpuscular HGB Conc 34 g/dL (31-36); Mean Corpuscular Hemoglobin 31 pg (27-31); Mean Corpuscular Volume 93 fL (80-94); Mean Platelet Volume 8.7 fL (7.4-10.4); Platelet Count 66 10^3/uL (150-450); Red Blood Count 2.76 10^6 /uL (4.18-5.48); Red Cell Distribution Width 17 % (10-15); White Blood Count 3.6 10^3/uL (3.5-10.8)
[2022-01-31 06:41] LABS: Calcium 7.4 mg/dL (8.6-10.3); Magnesium 1.7 mg/dL (1.9-2.7); Potassium 4.1 mmol/L (3.5-5.0); eGFR CKD-EPI 121.2 (>60)
[2022-01-31] MEDS: Mometasone/Formoter 200/5 MDI INH SCH ×2 (07:19→19:12)
[2022-01-31] MEDS ORDERED: Magnesium Sulfate IV 3 GM in NS 0.9% 100 ml BAG 100 ML IVPB ONE (07:54)
[2022-01-31] MEDS: Nystatin SUSPENSION 100,000 UNITS/ML UDC SWISH SPIT SCH ×4 (08:15→20:47)
[2022-02-01 06:05] LABS: ABS Lymphocytes 0.1 10^3/ul (1.0-4.8); ABS Monocytes 0.1 10^3/ul (0-0.8); ABS Neutrophils 2.3 10^3/ul (1.5-7.7); Eosinophil % 0.5 %; Hematocrit 26 % (42-52); Hemoglobin 8.6 g/dL (14.0-18.0); Mean Corpuscular HGB Conc 33 g/dL (31-36); Mean Corpuscular Hemoglobin 30 pg (27-31); Mean Corpuscular Volume 91 fL (80-94); Mean Platelet Volume 8.6 fL (7.4-10.4); Nucleated Red Blood Cells % 0.2; Platelet Count 77 10^3/uL (150-450); Red Blood Count 2.82 10^6 /uL (4.18-5.48); Red Cell Distribution Width 16 % (10-15); White Blood Count 2.5 10^3/uL (3.5-10.8)
[2022-02-01 06:52] LABS: Calcium 7.8 mg/dL (8.6-10.3); Magnesium 1.9 mg/dL (1.9-2.7); Potassium 3.9 mmol/L (3.5-5.0); eGFR CKD-EPI 119.8 (>60)
[2022-02-01] MEDS: Nystatin SUSPENSION 100,000 UNITS/ML UDC SWISH SPIT SCH ×4 (07:37→19:52)
[2022-02-01] MEDS: Mometasone/Formoter 200/5 MDI INH SCH ×2 (07:47→20:07)
[2022-02-02 05:22] LABS: ABS Lymphocytes 0.1 10^3/ul (1.0-4.8); ABS Monocytes 0.1 10^3/ul (0-0.8); ABS Neutrophils 1.8 10^3/ul (1.5-7.7); Eosinophil % 0.4 %; Hematocrit 28 % (42-52); Hemoglobin 8.8 g/dL (14.0-18.0); Lymphocyte % 2.8 %; Mean Corpuscular HGB Conc 32 g/dL (31-36); Mean Corpuscular Hemoglobin 30 pg (27-31); Mean Corpuscular Volume 93 fL (80-94); Mean Platelet Volume 8.5 fL (7.4-10.4); Nucleated Red Blood Cells % 0.2; Platelet Count 77 10^3/uL (150-450); Red Blood Count 2.95 10^6 /uL (4.18-5.48); Red Cell Distribution Width 17 % (10-15); White Blood Count 1.9 10^3/uL (3.5-10.8)
[2022-02-02 06:19] LABS: Anion Gap 10 mmol/L (2-11); Blood Urea Nitrogen 13 mg/dL (6-24); CO2 Carbon Dioxide 25 mmol/L (22-32); Calcium 7.8 mg/dL (8.6-10.3); Chloride 97 mmol/L (101-111); Glucose 87 mg/dL (70-100); Magnesium 1.6 mg/dL (1.9-2.7); Phosphorus 2.6 mg/dL (2.5-5.0); Potassium 3.7 mmol/L (3.5-5.0); Sodium 132 mmol/L (135-145); eGFR CKD-EPI 121.9 (>60)
[2022-02-02] MEDS: Mometasone/Formoter 200/5 MDI INH SCH (07:31)
[2022-02-02] MEDS: Nystatin SUSPENSION 100,000 UNITS/ML UDC SWISH SPIT SCH ×2 (07:53→13:13)
[2022-02-02] MEDS ORDERED: Magnesium Sulf 4 GM/100 ML IV 4,000 MG/100 ML BAG IVPB ONE (09:31)
[2022-02-02 09:52] LABS: % Iron Saturation 17 % (15-55); Iron 39 ug/dL (50-212); Total Iron Binding Capacity 228 mcg/dL (250-450); Transferrin 163 mg/dL (203-362); Unsaturated Iron Binding 189 ug/dL
[2022-02-02 10:17] LABS: Vitamin B12 629 pg/mL (180-914)
[2022-02-02 10:31] LABS: Ferritin > 1500.0 ng/mL (24-336)
[2022-02-02 15:07] VITALS: BP 100/60
== END 2022-02-02 14:45 | disposition home or self-care (01) | DRG 137 ==
LOC: ED 14:49 → SUATTDRO 19:51 → EDHOLD 19:51 → ICU 22:28
PROVIDERS: ADMIT Hospitalist; ATTEND Internal Medicine Critical Care Medicine

== ENCOUNTER 2022-02-06 18:07 | Inpatient (IN) ==
[2022-02-06] MEDS ORDERED: Lactated Ringers 1000 ml BAG 1,000 ML IV ONE (19:04)
[2022-02-06 19:57] LABS: ABS Lymphocytes 0.2 10^3/ul (1.0-4.8); ABS Monocytes 0.2 10^3/ul (0-0.8); ABS Neutrophils 1.7 10^3/ul (1.5-7.7); Eosinophil % 0.1 %; Hematocrit 25 % (42-52); Hemoglobin 8.3 g/dL (14.0-18.0); Lymphocyte % 7.4 %; Mean Corpuscular HGB Conc 33 g/dL (31-36); Mean Corpuscular Hemoglobin 30 pg (27-31); Mean Corpuscular Volume 92 fL (80-94); Mean Platelet Volume 9.6 fL (7.4-10.4); Nucleated Red Blood Cells % 0.3; Platelet Count 88 10^3/uL (150-450); Red Blood Count 2.75 10^6 /uL (4.18-5.48); Red Cell Distribution Width 16 % (10-15); White Blood Count 2.1 10^3/uL (3.5-10.8)
[2022-02-06 20:21] LABS: Albumin 2.7 g/dL (3.2-5.2); Albumin/Globulin Ratio 1.3 (1-3); Calcium 7.8 mg/dL (8.6-10.3); Globulin 2.1 g/dL (2-4); Potassium 3.7 mmol/L (3.5-5.0); Total Bilirubin 0.8 mg/dL (0.2-1.0); Total Protein 4.8 g/dL (6.4-8.9); eGFR CKD-EPI 117.1 (>60)
[2022-02-06 21:17] LABS: High Sensitivity Troponin 1 Hr 26 pg/mL (<20)
[2022-02-06] MEDS ORDERED: Iodixanol (CONTRAST) 320 MG/ML 100 ML SDV IV ONE (21:56)
[2022-02-07 06:06] LABS: ABS Lymphocytes 0.1 10^3/ul (1.0-4.8); ABS Monocytes 0.2 10^3/ul (0-0.8); Eosinophil % 0.8 %; Hematocrit 25 % (42-52); Hemoglobin 8.1 g/dL (14.0-18.0); Lymphocyte % 5.2 %; Mean Corpuscular HGB Conc 33 g/dL (31-36); Mean Corpuscular Hemoglobin 30 pg (27-31); Mean Corpuscular Volume 92 fL (80-94); Mean Platelet Volume 9.5 fL (7.4-10.4); Nucleated Red Blood Cells % 0.1; Platelet Count 87 10^3/uL (150-450); Red Blood Count 2.68 10^6 /uL (4.18-5.48); Red Cell Distribution Width 17 % (10-15); White Blood Count 2.3 10^3/uL (3.5-10.8)
[2022-02-07] MEDS ORDERED: Lactated Ringers 1000 ml BAG 1,000 ML IV ONE (06:31)
[2022-02-07 06:40] LABS: Albumin 2.5 g/dL (3.2-5.2); Albumin/Globulin Ratio 1.2 (1-3); Calcium 8.1 mg/dL (8.6-10.3); Direct Bilirubin 0.2 mg/dL (0.03-0.18); Globulin 2.1 g/dL (2-4); Indirect Bilirubin 0.6 mg/dL (0.3-1.0); Potassium 3.5 mmol/L (3.5-5.0); Total Bilirubin 0.8 mg/dL (0.2-1.0); Total Protein 4.6 g/dL (6.4-8.9); eGFR CKD-EPI 120.5 (>60)
[2022-02-07] MEDS ORDERED: Cefepime ADVAN 1 GM in NS 0.9% 50 ML 50 ML IVPB SCH (07:00)
[2022-02-07] MEDS ORDERED: Cefepime 1 GM in Dextrose 1 GM/50 ML BAG IV SCH (07:30)
[2022-02-07] MEDS: Aspirin EC 81 mg TAB.EC (enteric coated) PO SCH (08:12)
[2022-02-07] MEDS: Cefepime 2 GM in Dextrose 2 GM/50 ML BAG IV SCH ×4 (08:13→23:55)
[2022-02-07] MEDS: Hydrocortisone INJ 100 MG/2ML 2 ML VIAL IV SCH ×3 (08:13→23:55)
[2022-02-07] MEDS: Mometasone/Formoter 200/5 MDI INH SCH ×2 (13:52→19:54)
[2022-02-07] MEDS ORDERED: LENALIDOMIDE 20 MG PO SCH (21:00)
[2022-02-08] MEDS: Hydrocortisone INJ 100 MG/2ML 2 ML VIAL IV SCH ×3 (06:11→21:01)
[2022-02-08] MEDS: Cefepime 2 GM in Dextrose 2 GM/50 ML BAG IV SCH (06:12)
[2022-02-08 06:39] LABS: ABS Lymphocytes 0.1 10^3/ul (1.0-4.8); ABS Monocytes 0.2 10^3/ul (0-0.8); ABS Neutrophils 1.6 10^3/ul (1.5-7.7); Eosinophil % 0.1 %; Hematocrit 24 % (42-52); Hemoglobin 7.7 g/dL (14.0-18.0); Lymphocyte % 6.8 %; Mean Corpuscular HGB Conc 33 g/dL (31-36); Mean Corpuscular Hemoglobin 30 pg (27-31); Mean Corpuscular Volume 92 fL (80-94); Nucleated Red Blood Cells % 0.2; Platelet Count 86 10^3/uL (150-450); Red Blood Count 2.56 10^6 /uL (4.18-5.48); Red Cell Distribution Width 17 % (10-15); White Blood Count 1.9 10^3/uL (3.5-10.8)
[2022-02-08 07:13] LABS: Albumin 2.3 g/dL (3.2-5.2); Albumin/Globulin Ratio 1.2 (1-3); Direct Bilirubin 0.2 mg/dL (0.03-0.18); Indirect Bilirubin 0.4 mg/dL (0.3-1.0); Magnesium 1.8 mg/dL (1.9-2.7); Potassium 3.6 mmol/L (3.5-5.0); Total Bilirubin 0.6 mg/dL (0.2-1.0); Total Protein 4.3 g/dL (6.4-8.9); eGFR CKD-EPI 123.5 (>60)
[2022-02-08] MEDS: Mometasone/Formoter 200/5 MDI INH SCH ×2 (07:15→19:29)
[2022-02-08] MEDS ORDERED: Magnesium Sulfate IV 1GM/100ML 1 GM/100 ML BAG IV ONE (07:15)
[2022-02-08] MEDS ORDERED: Vancomycin 1,000 MG in NS 0.9% 250 ml 250 ML IVPB ONE (07:53)
[2022-02-08] MEDS ORDERED: Piperacillin/Tazobac ADVAN 3.375 GM in NS 0.9% 100 ml BAG 100 ML IV ONE (07:53)
[2022-02-08] MEDS ORDERED: Dextrose 50% Syringe 50 ml 25 GM/50 ML SYRINGE IV PUSH PRN (07:57)
[2022-02-08] MEDS ORDERED: Vancomycin per Pharmacy 1 EA NOTE FOLLOW UP SCH (08:00)
[2022-02-08] MEDS ORDERED: Zosyn per Pharmacy NOTE FOLLOW UP SCH (08:00)
[2022-02-08] MEDS ORDERED: Iodixanol (CONTRAST) 320 MG/ML 100 ML SDV IV ONE (08:01)
[2022-02-08 08:12] LABS: PCO2 Arterial 32 mmHg (35-45); PO2 Arterial 74 mmHg (80-100)
[2022-02-08] MEDS: Aspirin EC 81 mg TAB.EC (enteric coated) PO SCH (09:44)
[2022-02-08] MEDS: ZOSYN 3.375 GM Q8H per EXTENDED INFUSION IV SCH ×2 (14:21→21:01)
[2022-02-08] MEDS ORDERED: Vancomycin 1000 MG in NS 0.9% 250 ML IVPB SCH (23:30)
[2022-02-09] MEDS: Vancomycin 1000 MG in NS 0.9% 250 ML IVPB SCH ×2 (01:34→13:26)
[2022-02-09 03:28] LABS: Magnesium 1.9 mg/dL (1.9-2.7); Phosphorus 2.2 mg/dL (2.5-5.0)
[2022-02-09 04:21] LABS: Potassium 3.3 mmol/L (3.5-5.0)
[2022-02-09 04:48] LABS: Albumin 2.2 g/dL (3.2-5.2); Albumin/Globulin Ratio 1.2 (1-3); Calcium 7.8 mg/dL (8.6-10.3); Globulin 1.8 g/dL (2-4); Total Bilirubin 0.5 mg/dL (0.2-1.0); eGFR CKD-EPI 120.5 (>60)
[2022-02-09] MEDS ORDERED: Potassium Phosphate IV 15 MMOLE in NS 0.9% 250 ml 250 ML IVPB ONE (04:55)
[2022-02-09] MEDS: Hydrocortisone INJ 100 MG/2ML 2 ML VIAL IV SCH (05:20)
[2022-02-09] MEDS: ZOSYN 3.375 GM Q8H per EXTENDED INFUSION IV SCH ×3 (05:21→22:05)
[2022-02-09 05:47] LABS: ABS Lymphocytes 0.1 10^3/ul (1.0-4.8); ABS Monocytes 0.2 10^3/ul (0-0.8); ABS Neutrophils 1.7 10^3/ul (1.5-7.7); Hematocrit 22 % (42-52); Hemoglobin 7.2 g/dL (14.0-18.0); Lymphocyte % 6.8 %; Mean Corpuscular HGB Conc 33 g/dL (31-36); Mean Corpuscular Hemoglobin 30 pg (27-31); Mean Corpuscular Volume 93 fL (80-94); Mean Platelet Volume 10.3 fL (7.4-10.4); Nucleated Red Blood Cells % 0.5; Platelet Count 88 10^3/uL (150-450); Red Blood Count 2.37 10^6 /uL (4.18-5.48); Red Cell Distribution Width 17 % (10-15)
[2022-02-09] MEDS: Mometasone/Formoter 200/5 MDI INH SCH ×2 (08:07→19:30)
[2022-02-09] MEDS: Aspirin EC 81 mg TAB.EC (enteric coated) PO SCH (09:01)
[2022-02-09] MEDS ORDERED: Lidocaine 2% PF 5 ML VIAL INJ ONE (09:44)
[2022-02-09] MEDS ORDERED: Darbepoetin Alfa Albumen Free 500 MCG/ML SYRINGE SUBCUT ONE (11:30)
[2022-02-09] MEDS: methylPREDNISolone SOD SUCC 40 mg/ml 1 ml VIAL IV SCH ×2 (11:38→19:23)
[2022-02-09] MEDS ORDERED: Potassium Phosphate IV 10 MMOLE in NS 0.9% 250 ml 250 ML IVPB ONE (11:43)
[2022-02-09] MEDS ORDERED: Potassium Chlor 20 meq TAB.ER PO ONE (11:43)
[2022-02-10] MEDS: Vancomycin 1000 MG in NS 0.9% 250 ML IVPB SCH ×2 (03:00→12:47)
[2022-02-10] MEDS: methylPREDNISolone SOD SUCC 40 mg/ml 1 ml VIAL IV SCH ×3 (03:21→21:43)
[2022-02-10] MEDS: ZOSYN 3.375 GM Q8H per EXTENDED INFUSION IV SCH ×3 (06:10→21:43)
[2022-02-10 06:25] LABS: Hematocrit 15 % (42-52); Hemoglobin 4.6 g/dL (14.0-18.0)
[2022-02-10 06:47] LABS: Potassium 3.5 mmol/L (3.5-5.0); eGFR CKD-EPI 126.9 (>60)
[2022-02-10] MEDS: Mometasone/Formoter 200/5 MDI INH SCH ×2 (07:47→20:07)
[2022-02-10 08:20] LABS: ABS Lymphocytes 0.2 10^3/ul (1.0-4.8); ABS Monocytes 0.3 10^3/ul (0-0.8); ABS Neutrophils 3.7 10^3/ul (1.5-7.7); Hematocrit 26 % (42-52); Hemoglobin 8.5 g/dL (14.0-18.0); Lymphocyte % 5.6 %; Mean Corpuscular HGB Conc 33 g/dL (31-36); Mean Corpuscular Hemoglobin 31 pg (27-31); Mean Corpuscular Volume 94 fL (80-94); Mean Platelet Volume 9.7 fL (7.4-10.4); Nucleated Red Blood Cells % 0.3; Platelet Count 98 10^3/uL (150-450); Red Blood Count 2.74 10^6 /uL (4.18-5.48); Red Cell Distribution Width 17 % (10-15); White Blood Count 4.2 10^3/uL (3.5-10.8)
[2022-02-10] MEDS: Aspirin EC 81 mg TAB.EC (enteric coated) PO SCH (09:01)
[2022-02-10 09:07] LABS: ABS Lymphocytes 0.1 10^3/ul (1.0-4.8); ABS Monocytes 0.1 10^3/ul (0-0.8); ABS Neutrophils 1.7 10^3/ul (1.5-7.7); Eosinophil % 0.1 %; Lymphocyte % 5.2 %; Mean Corpuscular HGB Conc 31 g/dL (31-36); Mean Corpuscular Hemoglobin 31 pg (27-31); Mean Corpuscular Volume 97 fL (80-94); Mean Platelet Volume 10.2 fL (7.4-10.4); Nucleated Red Blood Cells % 0.7; Platelet Count 54 10^3/uL (150-450); Red Cell Distribution Width 17 % (10-15)
[2022-02-10] MEDS ORDERED: Vancomycin Trough Check NOTE FOLLOW UP ONE (12:30)
[2022-02-10] MEDS ORDERED: Potassium Chlor 20 meq TAB.ER PO ONE (14:48)
[2022-02-11 04:45] LABS: ABS Lymphocytes 0.2 10^3/ul (1.0-4.8); ABS Monocytes 0.2 10^3/ul (0-0.8); Hematocrit 25 % (42-52); Hemoglobin 8.2 g/dL (14.0-18.0); Lymphocyte % 4.5 %; Mean Corpuscular HGB Conc 33 g/dL (31-36); Mean Corpuscular Hemoglobin 31 pg (27-31); Mean Corpuscular Volume 95 fL (80-94); Mean Platelet Volume 8.9 fL (7.4-10.4); Nucleated Red Blood Cells % 0.8; Platelet Count 88 10^3/uL (150-450); Red Blood Count 2.63 10^6 /uL (4.18-5.48); Red Cell Distribution Width 17 % (10-15); White Blood Count 4.4 10^3/uL (3.5-10.8)
[2022-02-11 05:03] LABS: Calcium 8.1 mg/dL (8.6-10.3); Potassium 3.8 mmol/L (3.5-5.0); eGFR CKD-EPI 121.2 (>60)
[2022-02-11] MEDS: ZOSYN 3.375 GM Q8H per EXTENDED INFUSION IV SCH ×3 (06:29→20:28)
[2022-02-11] MEDS: Mometasone/Formoter 200/5 MDI INH SCH ×2 (08:11→20:01)
[2022-02-11] MEDS: Aspirin EC 81 mg TAB.EC (enteric coated) PO SCH (08:40)
[2022-02-11] MEDS ORDERED: Furosemide 40 mg/4 ml IV VIAL IV SLOW PU ONE (09:59)
[2022-02-12 04:51] LABS: Hematocrit 29 % (42-52); Hemoglobin 9.3 g/dL (14.0-18.0); Mean Corpuscular HGB Conc 32 g/dL (31-36); Mean Corpuscular Hemoglobin 31 pg (27-31); Mean Corpuscular Volume 96 fL (80-94); Mean Platelet Volume 9.5 fL (7.4-10.4); Platelet Count 103 10^3/uL (150-450); Red Blood Count 3.02 10^6 /uL (4.18-5.48); Red Cell Distribution Width 18 % (10-15); White Blood Count 4.9 10^3/uL (3.5-10.8)
[2022-02-12] MEDS: ZOSYN 3.375 GM Q8H per EXTENDED INFUSION IV SCH ×3 (05:01→21:59)
[2022-02-12 05:18] LABS: Calcium 8.5 mg/dL (8.6-10.3); Potassium 3.5 mmol/L (3.5-5.0); eGFR CKD-EPI 114.7 (>60)
[2022-02-12] MEDS ORDERED: Succinylcholine 200 mg VIAL 20 mg/ml 10 ml VIAL (200 mg) ONE (06:52)
[2022-02-12] MEDS ORDERED: Rocuronium 50 mg VIAL 10 mg/ml 5 ml VIAL (50 mg) ONE (06:52)
[2022-02-12] MEDS ORDERED: Propofol 10 mg/ml 100 ML BTL 0 ML ONE (06:52)
[2022-02-12] MEDS ORDERED: Metoprolol Tartrate 5 mg VIAL 5 ml VIAL (1 mg/ml) IV PRN ×3 (07:05→10:36)
[2022-02-12] MEDS ORDERED: Metoprolol Tartrate 5 mg VIAL 5 ml VIAL (1 mg/ml) ONE (07:09)
[2022-02-12] MEDS: Morphine 2 MG/ML SYRINGE ONE ×2 (07:15→07:26)
[2022-02-12] MEDS: Furosemide 40 mg/4 ml IV VIAL ONE ×2 (07:26→07:35)
[2022-02-12] MEDS ORDERED: Furosemide 40 mg/4 ml IV VIAL IV SLOW PU ONE (07:40)
[2022-02-12 07:48] LABS: Magnesium 1.7 mg/dL (1.9-2.7)
[2022-02-12] MEDS ORDERED: Metoprolol Tartrate 5 mg VIAL 5 ml VIAL (1 mg/ml) IV ONE (07:49)
[2022-02-12] MEDS ORDERED: Morphine 2 MG/ML SYRINGE IV ONE ×2 (08:00→11:00)
[2022-02-12] MEDS: KCL 20 MEQ/100 ML IVPREMIX 20 MEQ/100 ML BAG IV SCH ×2 (08:05→10:28)
[2022-02-12] MEDS ORDERED: Dextrose 50% Syringe 50 ml 25 GM/50 ML SYRINGE IV PUSH PRN (08:44)
[2022-02-12 09:00] LABS: Anisocytosis 1+; Polychromasia 1+
[2022-02-12] MEDS ORDERED: METOPROLOL SUCCINATE 25 MG PO SCH (09:00)
[2022-02-12 09:01] LABS: ABS Lymphocytes 0.3 10^3/ul (1.0-4.8); ABS Monocytes 0.2 10^3/ul (0-0.8); ABS Neutrophils 4.3 10^3/ul (1.5-7.7); ABS Nucleated RBC 0.2 10^3/ul; Eosinophil % 0.2 %; Lymphocyte % 7.2 %; Nucleated Red Blood Cells % 3.6
[2022-02-12] MEDS ORDERED: Magnesium Sulf 4 GM/100 ML IV 4,000 MG/100 ML BAG IVPB ONE (10:16)
[2022-02-12] MEDS: Aspirin EC 81 mg TAB.EC (enteric coated) PO SCH (10:20)
[2022-02-12] MEDS: Mometasone/Formoter 200/5 MDI INH SCH ×2 (10:21→19:12)
[2022-02-12] MEDS ORDERED: Furosemide 20 mg/2 ml IV VIAL IV SLOW PU ONE (12:52)
[2022-02-12] MEDS: methylPREDNISolone SOD SUCC 40 mg/ml 1 ml VIAL IV SCH (13:50)
[2022-02-12] MEDS: Enoxaparin 80 MG/0.8 ML SYR SUBCUT SCH (17:50)
[2022-02-12] MEDS: Azithromycin 500 mg/250 ml NS 500 MG/250 ML BAG IVPB SCH (17:55)
[2022-02-13] MEDS: methylPREDNISolone SOD SUCC 40 mg/ml 1 ml VIAL IV SCH ×2 (00:03→12:59)
[2022-02-13 04:52] LABS: Hematocrit 28 % (42-52); Hemoglobin 9.6 g/dL (14.0-18.0); Mean Corpuscular HGB Conc 34 g/dL (31-36); Mean Corpuscular Hemoglobin 32 pg (27-31); Mean Corpuscular Volume 96 fL (80-94); Mean Platelet Volume 9.6 fL (7.4-10.4); Platelet Count 93 10^3/uL (150-450); Red Blood Count 2.96 10^6 /uL (4.18-5.48); Red Cell Distribution Width 19 % (10-15); White Blood Count 3.1 10^3/uL (3.5-10.8)
[2022-02-13] MEDS: Enoxaparin 80 MG/0.8 ML SYR SUBCUT SCH ×2 (04:52→17:28)
[2022-02-13] MEDS: ZOSYN 3.375 GM Q8H per EXTENDED INFUSION IV SCH ×3 (04:54→20:42)
[2022-02-13 05:44] LABS: CO2 Carbon Dioxide 27 mmol/L (22-32); Chloride 99 mmol/L (101-111); Sodium 131 mmol/L (135-145)
[2022-02-13 05:49] LABS: Blood Urea Nitrogen 17 mg/dL (6-24); Glucose 147 mg/dL (70-100); eGFR CKD-EPI 122.7 (>60)
[2022-02-13 06:01] LABS: Anion Gap 5 mmol/L (2-11)
[2022-02-13 06:46] LABS: ABS Lymphocytes 0.2 10^3/ul (1.0-4.8); ABS Monocytes 0.1 10^3/ul (0-0.8); ABS Neutrophils 2.8 10^3/ul (1.5-7.7); Lymphocyte % 6.1 %; Nucleated Red Blood Cells % 0.6
[2022-02-13] MEDS: Aspirin EC 81 mg TAB.EC (enteric coated) PO SCH (08:31)
[2022-02-13] MEDS ORDERED: Furosemide 40 mg/4 ml IV VIAL IV ONE (08:41)
[2022-02-13] MEDS: Mometasone/Formoter 200/5 MDI INH SCH ×2 (09:51→19:33)
[2022-02-13] MEDS: Linezolid 600 MG IVPREMIX(*) 600 MG/300 ML BAG IVPB SCH (14:09)
[2022-02-13] MEDS: Azithromycin 500 mg/250 ml NS 500 MG/250 ML BAG IVPB SCH (17:27)
[2022-02-13 17:54] LABS: Blood Urea Nitrogen 18 mg/dL (6-24); CO2 Carbon Dioxide 28 mmol/L (22-32); Calcium 8.2 mg/dL (8.6-10.3); Chloride 98 mmol/L (101-111); Glucose 169 mg/dL (70-100); Sodium 132 mmol/L (135-145); eGFR CKD-EPI 117.8 (>60)
[2022-02-13] MEDS ORDERED: Furosemide 20 mg/2 ml IV VIAL IV SLOW PU ONE ×2 (17:57→20:00)
[2022-02-13] MEDS ORDERED: KCL 20 MEQ/100 ML IVPREMIX 20 MEQ/100 ML BAG IV ONE ×2 (17:58→20:00)
[2022-02-13 17:59] LABS: Anion Gap 6 mmol/L (2-11)
[2022-02-13] MEDS ORDERED: Magic MouthWash2-BEN/MAAL/LIDO/NYST 240 ML BTL (alt formulation) SWISH SPIT PRN (18:31)
[2022-02-13 19:00] LABS: Potassium 3.6 mmol/L (3.5-5.0)
[2022-02-13 19:06] LABS: Phosphorus 2.6 mg/dL (2.5-5.0)
[2022-02-14] MEDS: Linezolid 600 MG IVPREMIX(*) 600 MG/300 ML BAG IVPB SCH ×3 (01:50→23:41)
[2022-02-14] MEDS: methylPREDNISolone SOD SUCC 40 mg/ml 1 ml VIAL IV SCH ×3 (02:04→23:41)
[2022-02-14] MEDS: Enoxaparin 80 MG/0.8 ML SYR SUBCUT SCH ×2 (03:47→16:27)
[2022-02-14 05:06] LABS: Hematocrit 28 % (42-52); Mean Corpuscular HGB Conc 33 g/dL (31-36); Mean Corpuscular Hemoglobin 31 pg (27-31); Mean Corpuscular Volume 95 fL (80-94); Mean Platelet Volume 10.1 fL (7.4-10.4); Platelet Count 88 10^3/uL (150-450); Red Blood Count 2.91 10^6 /uL (4.18-5.48); Red Cell Distribution Width 18 % (10-15); White Blood Count 5.7 10^3/uL (3.5-10.8)
[2022-02-14 05:33] LABS: Calcium 8.2 mg/dL (8.6-10.3); Potassium 3.6 mmol/L (3.5-5.0); eGFR CKD-EPI 116.5 (>60)
[2022-02-14] MEDS: ZOSYN 3.375 GM Q8H per EXTENDED INFUSION IV SCH ×3 (05:40→22:13)
[2022-02-14] MEDS: Mometasone/Formoter 200/5 MDI INH SCH ×2 (07:40→20:48)
[2022-02-14] MEDS: Aspirin EC 81 mg TAB.EC (enteric coated) PO SCH (09:08)
[2022-02-14] MEDS ORDERED: NS 0.9% IV ONE (10:23)
[2022-02-14] MEDS ORDERED: MAGNESIUM SULFATE IV ONE (10:23)
[2022-02-14] MEDS ORDERED: Albuterol/Ipratropium NEB.SOL (2.5/0.5 MG) 3 ML NEB.SOLN INH PRN (11:40)
[2022-02-14] MEDS ORDERED: Acetylcysteine INHALATION SOL 200 MG/ML NEB.SOLN 10 ML INH PRN (11:48)
[2022-02-14] MEDS: Azithromycin 500 mg/250 ml NS 500 MG/250 ML BAG IVPB SCH (16:27)
[2022-02-15 04:35] LABS: Hematocrit 28 % (42-52); Hemoglobin 9.4 g/dL (14.0-18.0); Mean Corpuscular HGB Conc 34 g/dL (31-36); Mean Corpuscular Hemoglobin 33 pg (27-31); Mean Corpuscular Volume 96 fL (80-94); Mean Platelet Volume 10.8 fL (7.4-10.4); Platelet Count 94 10^3/uL (150-450); Red Blood Count 2.88 10^6 /uL (4.18-5.48); Red Cell Distribution Width 19 % (10-15); White Blood Count 4.6 10^3/uL (3.5-10.8)
[2022-02-15 05:10] LABS: Potassium 3.6 mmol/L (3.5-5.0); eGFR CKD-EPI 120.5 (>60)
[2022-02-15 05:54] LABS: ABS Lymphocytes 0.1 10^3/ul (1.0-4.8); ABS Monocytes 0.2 10^3/ul (0-0.8); ABS Neutrophils 4.3 10^3/ul (1.5-7.7); Eosinophil % 0.1 %; Lymphocyte % 2.5 %; Nucleated Red Blood Cells % 0.5
[2022-02-15] MEDS: Enoxaparin 80 MG/0.8 ML SYR SUBCUT SCH ×2 (06:27→16:47)
[2022-02-15] MEDS: ZOSYN 3.375 GM Q8H per EXTENDED INFUSION IV SCH ×3 (06:29→21:56)
[2022-02-15] MEDS: Mometasone/Formoter 200/5 MDI INH SCH ×2 (07:04→20:21)
[2022-02-15] MEDS: Aspirin EC 81 mg TAB.EC (enteric coated) PO SCH (09:24)
[2022-02-15] MEDS: Linezolid 600 MG IVPREMIX(*) 600 MG/300 ML BAG IVPB SCH (12:16)
[2022-02-15] MEDS: Magic MouthWash2-BEN/MAAL/LIDO/NYST 240 ML BTL (alt formulation) SWISH SPIT PRN (12:16)
[2022-02-15] MEDS: methylPREDNISolone SOD SUCC 40 mg/ml 1 ml VIAL IV SCH (12:44)
[2022-02-15] MEDS ORDERED: Dextrose 50% Syringe 50 ml 25 GM/50 ML SYRINGE IV PUSH PRN (18:14)
[2022-02-16] MEDS: Linezolid 600 MG IVPREMIX(*) 600 MG/300 ML BAG IVPB SCH ×2 (01:59→12:45)
[2022-02-16] MEDS: methylPREDNISolone SOD SUCC 40 mg/ml 1 ml VIAL IV SCH ×2 (02:01→12:45)
[2022-02-16 05:27] LABS: ABS Lymphocytes 0.1 10^3/ul (1.0-4.8); ABS Monocytes 0.2 10^3/ul (0-0.8); ABS Neutrophils 6.3 10^3/ul (1.5-7.7); Hematocrit 31 % (42-52); Hemoglobin 9.8 g/dL (14.0-18.0); Lymphocyte % 1.6 %; Mean Corpuscular HGB Conc 32 g/dL (31-36); Mean Corpuscular Hemoglobin 31 pg (27-31); Mean Corpuscular Volume 96 fL (80-94); Nucleated Red Blood Cells % 0.1; Platelet Count 90 10^3/uL (150-450); Red Cell Distribution Width 19 % (10-15); White Blood Count 6.7 10^3/uL (3.5-10.8)
[2022-02-16] MEDS: Enoxaparin 80 MG/0.8 ML SYR SUBCUT SCH ×2 (05:37→17:08)
[2022-02-16] MEDS: ZOSYN 3.375 GM Q8H per EXTENDED INFUSION IV SCH ×3 (05:37→21:12)
[2022-02-16 05:48] LABS: Calcium 8.3 mg/dL (8.6-10.3); Potassium 4.2 mmol/L (3.5-5.0); eGFR CKD-EPI 122.7 (>60)
[2022-02-16] MEDS: Aspirin EC 81 mg TAB.EC (enteric coated) PO SCH (08:33)
[2022-02-16] MEDS: Magic MouthWash2-BEN/MAAL/LIDO/NYST 240 ML BTL (alt formulation) SWISH SPIT PRN (08:33)
[2022-02-16 08:43] LABS: Magnesium 1.8 mg/dL (1.9-2.7)
[2022-02-16 09:01] LABS: BM Chromosome Source L PIC; BM Referral Reason D61.81; BM Result Summary Normal
[2022-02-16] MEDS: Magic MouthWash2-BEN/MAAL/LIDO/NYST 240 ML BTL (alt formulation) SWISH SPIT SCH ×4 (09:03→21:11)
[2022-02-16] MEDS: Nystatin TOP POWDER 15 GM BTL TOPICAL SCH ×2 (10:00→21:18)
[2022-02-16] MEDS: Carbamide Peroxide 6.5% OTIC 15 ML BTL BOTH EARS SCH ×2 (10:00→21:12)
[2022-02-16] MEDS: Mometasone/Formoter 200/5 MDI INH SCH ×2 (11:07→22:35)
[2022-02-17] MEDS: Linezolid 600 MG IVPREMIX(*) 600 MG/300 ML BAG IVPB SCH ×2 (00:39→13:27)
[2022-02-17] MEDS: methylPREDNISolone SOD SUCC 40 mg/ml 1 ml VIAL IV SCH ×2 (00:39→13:26)
[2022-02-17] MEDS: Enoxaparin 80 MG/0.8 ML SYR SUBCUT SCH ×2 (03:59→16:15)
[2022-02-17] MEDS: ZOSYN 3.375 GM Q8H per EXTENDED INFUSION IV SCH ×3 (05:38→20:53)
[2022-02-17 05:44] LABS: ABS Lymphocytes 0.1 10^3/ul (1.0-4.8); ABS Monocytes 0.2 10^3/ul (0-0.8); ABS Neutrophils 6.7 10^3/ul (1.5-7.7); Hematocrit 32 % (42-52); Hemoglobin 10.4 g/dL (14.0-18.0); Lymphocyte % 1.6 %; Mean Corpuscular HGB Conc 32 g/dL (31-36); Mean Corpuscular Hemoglobin 31 pg (27-31); Mean Corpuscular Volume 97 fL (80-94); Mean Platelet Volume 10.3 fL (7.4-10.4); Nucleated Red Blood Cells % 0.3; Platelet Count 92 10^3/uL (150-450); Red Blood Count 3.33 10^6 /uL (4.18-5.48); Red Cell Distribution Width 19 % (10-15); White Blood Count 7.1 10^3/uL (3.5-10.8)
[2022-02-17 06:18] LABS: Calcium 8.5 mg/dL (8.6-10.3); Magnesium 1.8 mg/dL (1.9-2.7); Phosphorus 2.7 mg/dL (2.5-5.0); Potassium 4.1 mmol/L (3.5-5.0)
[2022-02-17] MEDS ORDERED: Magnesium Sulfate 2 gm BAG 2 GM/50 ML BAG IVPB ONE (07:41)
[2022-02-17] MEDS: Nystatin TOP POWDER 15 GM BTL TOPICAL SCH ×2 (09:23→20:54)
[2022-02-17] MEDS: Aspirin EC 81 mg TAB.EC (enteric coated) PO SCH (09:23)
[2022-02-17] MEDS: Magic MouthWash2-BEN/MAAL/LIDO/NYST 240 ML BTL (alt formulation) SWISH SPIT SCH ×4 (09:24→23:57)
[2022-02-17] MEDS: Carbamide Peroxide 6.5% OTIC 15 ML BTL BOTH EARS SCH ×2 (09:24→20:47)
[2022-02-17] MEDS: Mometasone/Formoter 200/5 MDI INH SCH ×2 (09:25→19:40)
[2022-02-18] MEDS: Linezolid 600 MG IVPREMIX(*) 600 MG/300 ML BAG IVPB SCH ×2 (01:08→13:28)
[2022-02-18] MEDS: methylPREDNISolone SOD SUCC 40 mg/ml 1 ml VIAL IV SCH ×2 (01:09→13:29)
[2022-02-18] MEDS: Enoxaparin 80 MG/0.8 ML SYR SUBCUT SCH ×2 (05:41→16:53)
[2022-02-18] MEDS: ZOSYN 3.375 GM Q8H per EXTENDED INFUSION IV SCH ×3 (05:41→21:09)
[2022-02-18 06:01] LABS: ABS Lymphocytes 0.2 10^3/ul (1.0-4.8); ABS Monocytes 0.1 10^3/ul (0-0.8); ABS Neutrophils 5.6 10^3/ul (1.5-7.7); Hematocrit 30 % (42-52); Hemoglobin 9.9 g/dL (14.0-18.0); Lymphocyte % 3.1 %; Mean Corpuscular HGB Conc 33 g/dL (31-36); Mean Corpuscular Hemoglobin 32 pg (27-31); Mean Corpuscular Volume 97 fL (80-94); Mean Platelet Volume 9.6 fL (7.4-10.4); Platelet Count 79 10^3/uL (150-450); Red Blood Count 3.11 10^6 /uL (4.18-5.48); Red Cell Distribution Width 19 % (10-15); White Blood Count 5.9 10^3/uL (3.5-10.8)
[2022-02-18 06:31] LABS: Calcium 8.4 mg/dL (8.6-10.3); Potassium 4.6 mmol/L (3.5-5.0); eGFR CKD-EPI 120.5 (>60)
[2022-02-18] MEDS: Mometasone/Formoter 200/5 MDI INH SCH ×2 (08:43→19:28)
[2022-02-18] MEDS: Nystatin TOP POWDER 15 GM BTL TOPICAL SCH ×2 (08:59→21:02)
[2022-02-18] MEDS: Aspirin EC 81 mg TAB.EC (enteric coated) PO SCH (08:59)
[2022-02-18] MEDS: Carbamide Peroxide 6.5% OTIC 15 ML BTL BOTH EARS SCH ×2 (08:59→21:03)
[2022-02-18] MEDS: Magic MouthWash2-BEN/MAAL/LIDO/NYST 240 ML BTL (alt formulation) SWISH SPIT SCH ×4 (08:59→21:02)
[2022-02-18] MEDS ORDERED: Acetylcysteine INHALATION SOL 200 MG/ML NEB.SOLN 10 ML INH SCH (17:00)
[2022-02-18] MEDS: Acetylcysteine INHALATION SOL 200 MG/ML NEB.SOLN 10 ML INH SCH (19:29)
[2022-02-18] MEDS: Albuterol/Ipratropium NEB.SOL (2.5/0.5 MG) 3 ML NEB.SOLN INH SCH (19:29)
[2022-02-19] MEDS: Linezolid 600 MG IVPREMIX(*) 600 MG/300 ML BAG IVPB SCH ×2 (01:54→13:34)
[2022-02-19] MEDS: methylPREDNISolone SOD SUCC 40 mg/ml 1 ml VIAL IV SCH ×2 (01:55→15:05)
[2022-02-19] MEDS: Enoxaparin 80 MG/0.8 ML SYR SUBCUT SCH ×2 (05:13→17:34)
[2022-02-19] MEDS: ZOSYN 3.375 GM Q8H per EXTENDED INFUSION IV SCH ×3 (05:14→23:34)
[2022-02-19 05:47] LABS: ABS Lymphocytes 0.2 10^3/ul (1.0-4.8); ABS Monocytes 0.2 10^3/ul (0-0.8); Hematocrit 33 % (42-52); Hemoglobin 10.8 g/dL (14.0-18.0); Lymphocyte % 3.2 %; Mean Corpuscular HGB Conc 33 g/dL (31-36); Mean Corpuscular Hemoglobin 32 pg (27-31); Mean Corpuscular Volume 98 fL (80-94); Mean Platelet Volume 9.4 fL (7.4-10.4); Platelet Count 83 10^3/uL (150-450); Red Blood Count 3.41 10^6 /uL (4.18-5.48); Red Cell Distribution Width 21 % (10-15); White Blood Count 7.5 10^3/uL (3.5-10.8)
[2022-02-19 06:29] LABS: Calcium 8.8 mg/dL (8.6-10.3); Magnesium 1.9 mg/dL (1.9-2.7); Phosphorus 2.5 mg/dL (2.5-5.0); Potassium 4.4 mmol/L (3.5-5.0); eGFR CKD-EPI 126.9 (>60)
[2022-02-19] MEDS ORDERED: Magnesium Sulfate IV 1GM/100ML 1 GM/100 ML BAG IV ONE (06:30)
[2022-02-19] MEDS: Albuterol/Ipratropium NEB.SOL (2.5/0.5 MG) 3 ML NEB.SOLN INH SCH ×5 (07:29→23:49)
[2022-02-19] MEDS: Acetylcysteine INHALATION SOL 200 MG/ML NEB.SOLN 10 ML INH SCH ×5 (07:29→23:49)
[2022-02-19] MEDS: Mometasone/Formoter 200/5 MDI INH SCH ×2 (07:30→21:29)
[2022-02-19] MEDS: Carbamide Peroxide 6.5% OTIC 15 ML BTL BOTH EARS SCH ×2 (09:22→22:27)
[2022-02-19] MEDS: Magic MouthWash2-BEN/MAAL/LIDO/NYST 240 ML BTL (alt formulation) SWISH SPIT SCH ×4 (09:22→22:25)
[2022-02-19] MEDS: Aspirin EC 81 mg TAB.EC (enteric coated) PO SCH (09:22)
[2022-02-19] MEDS: Nystatin TOP POWDER 15 GM BTL TOPICAL SCH ×2 (09:23→23:34)
[2022-02-19 10:46] LABS: FBLP Reason for Referral Pancytopenia D61.81; FBLP Result nuc ish(BCL2x2)[100]; FBLP Result Summary Normal; FBLP Source L PIC; Probes Requested BCL2
[2022-02-19] MEDS ORDERED: Acetylcysteine INHALATION SOL 200 MG/ML NEB.SOLN 10 ML INH SCH ×2 (11:00)
[2022-02-20] MEDS: methylPREDNISolone SOD SUCC 40 mg/ml 1 ml VIAL IV SCH ×2 (02:52→14:49)
[2022-02-20] MEDS: Acetylcysteine INHALATION SOL 200 MG/ML NEB.SOLN 10 ML INH SCH ×6 (03:14→23:15)
[2022-02-20] MEDS: Albuterol/Ipratropium NEB.SOL (2.5/0.5 MG) 3 ML NEB.SOLN INH SCH ×6 (03:14→23:15)
[2022-02-20] MEDS: Linezolid 600 MG IVPREMIX(*) 600 MG/300 ML BAG IVPB SCH (04:01)
[2022-02-20] MEDS: ZOSYN 3.375 GM Q8H per EXTENDED INFUSION IV SCH ×3 (05:08→20:48)
[2022-02-20] MEDS: Enoxaparin 80 MG/0.8 ML SYR SUBCUT SCH ×2 (05:13→17:13)
[2022-02-20 05:49] LABS: ABS Lymphocytes 0.1 10^3/ul (1.0-4.8); ABS Monocytes 0.1 10^3/ul (0-0.8); ABS Neutrophils 5.8 10^3/ul (1.5-7.7); Eosinophil % 0.1 %; Hematocrit 28 % (42-52); Hemoglobin 9.2 g/dL (14.0-18.0); Lymphocyte % 1.5 %; Mean Corpuscular HGB Conc 33 g/dL (31-36); Mean Corpuscular Hemoglobin 32 pg (27-31); Mean Corpuscular Volume 98 fL (80-94); Platelet Count 82 10^3/uL (150-450); Red Blood Count 2.89 10^6 /uL (4.18-5.48); Red Cell Distribution Width 19 % (10-15)
[2022-02-20 05:55] LABS: Calcium 8.2 mg/dL (8.6-10.3); Potassium 4.2 mmol/L (3.5-5.0); eGFR CKD-EPI 125.1 (>60)
[2022-02-20] MEDS: Mometasone/Formoter 200/5 MDI INH SCH ×2 (07:07→19:16)
[2022-02-20] MEDS: Magic MouthWash2-BEN/MAAL/LIDO/NYST 240 ML BTL (alt formulation) SWISH SPIT SCH ×4 (08:01→20:49)
[2022-02-20] MEDS: Aspirin EC 81 mg TAB.EC (enteric coated) PO SCH (08:01)
[2022-02-20] MEDS: Carbamide Peroxide 6.5% OTIC 15 ML BTL BOTH EARS SCH ×2 (08:02→20:48)
[2022-02-20] MEDS: Nystatin TOP POWDER 15 GM BTL TOPICAL SCH ×2 (08:02→20:48)
[2022-02-20] MEDS ORDERED: Lidocaine 2% PF 5 ML VIAL INJ ONE (09:27)
[2022-02-20] MEDS ORDERED: Lidocaine 2% PF 5 ML VIAL ONE ×2 (09:28→09:45)
[2022-02-20] MEDS ORDERED: Midazolam 2 mg/2 ml VIAL 1 mg/ml 2 ml VIAL (2 mg) ONE ×2 (09:30→10:04)
[2022-02-20] MEDS ORDERED: fentaNYL 100 mcg/2 ml 50 MCG/ML VIAL ONE (09:30)
[2022-02-20] MEDS ORDERED: Succinylcholine 200 mg VIAL 20 mg/ml 10 ml VIAL (200 mg) ONE (09:34)
[2022-02-20] MEDS ORDERED: Morphine 2 MG/ML SYRINGE IV ONE (17:27)
[2022-02-20] MEDS ORDERED: Metoprolol Tartrate 5 mg VIAL 5 ml VIAL (1 mg/ml) IV ONE (17:29)
[2022-02-20 18:06] LABS: Magnesium 1.9 mg/dL (1.9-2.7)
[2022-02-20] MEDS ORDERED: Levalbuterol 1.25MG/0.5ML NEB.SOL INH ONE (18:09)
[2022-02-20] MEDS: Metoprolol Tartrate 5 mg VIAL 5 ml VIAL (1 mg/ml) IV PRN (18:15)
[2022-02-21] MEDS: methylPREDNISolone SOD SUCC 40 mg/ml 1 ml VIAL IV SCH ×2 (00:03→13:32)
[2022-02-21] MEDS: Albuterol/Ipratropium NEB.SOL (2.5/0.5 MG) 3 ML NEB.SOLN INH SCH ×6 (03:26→23:46)
[2022-02-21] MEDS: Acetylcysteine INHALATION SOL 200 MG/ML NEB.SOLN 10 ML INH SCH ×6 (03:27→23:46)
[2022-02-21] MEDS: Enoxaparin 80 MG/0.8 ML SYR SUBCUT SCH ×2 (04:14→16:34)
[2022-02-21 04:38] LABS: ABS Lymphocytes 0.1 10^3/ul (1.0-4.8); ABS Monocytes 0.1 10^3/ul (0-0.8); ABS Neutrophils 3.9 10^3/ul (1.5-7.7); Hematocrit 29 % (42-52); Hemoglobin 9.3 g/dL (14.0-18.0); Lymphocyte % 2.4 %; Mean Corpuscular HGB Conc 32 g/dL (31-36); Mean Corpuscular Hemoglobin 32 pg (27-31); Mean Corpuscular Volume 98 fL (80-94); Mean Platelet Volume 9.8 fL (7.4-10.4); Nucleated Red Blood Cells % 0.1; Platelet Count 67 10^3/uL (150-450); Red Blood Count 2.94 10^6 /uL (4.18-5.48); Red Cell Distribution Width 20 % (10-15); White Blood Count 4.2 10^3/uL (3.5-10.8)
[2022-02-21 05:05] LABS: Calcium 8.3 mg/dL (8.6-10.3); Potassium 4.2 mmol/L (3.5-5.0); eGFR CKD-EPI 130.7 (>60)
[2022-02-21] MEDS: ZOSYN 3.375 GM Q8H per EXTENDED INFUSION IV SCH ×3 (05:06→22:25)
[2022-02-21] MEDS: Mometasone/Formoter 200/5 MDI INH SCH ×2 (07:14→20:01)
[2022-02-21] MEDS: Magic MouthWash2-BEN/MAAL/LIDO/NYST 240 ML BTL (alt formulation) SWISH SPIT SCH ×5 (07:42→23:19)
[2022-02-21] MEDS: Carbamide Peroxide 6.5% OTIC 15 ML BTL BOTH EARS SCH ×2 (07:42→21:02)
[2022-02-21] MEDS: Aspirin EC 81 mg TAB.EC (enteric coated) PO SCH (07:42)
[2022-02-21] MEDS: Nystatin TOP POWDER 15 GM BTL TOPICAL SCH ×3 (07:42→23:20)
[2022-02-21] MEDS ORDERED: Furosemide 20 mg/2 ml IV VIAL IV SLOW PU ONE (08:39)
[2022-02-21] MEDS: Metoprolol Tartrate 5 mg VIAL 5 ml VIAL (1 mg/ml) IV PRN (14:48)
[2022-02-21 15:07] LABS: Magnesium 1.9 mg/dL (1.9-2.7)
[2022-02-21] MEDS ORDERED: Morphine 2 MG/ML SYRINGE IV ONE (16:22)
[2022-02-21] MEDS ORDERED: Morphine 2 MG/ML SYRINGE ONE (16:31)
[2022-02-21] MEDS: TOBRAMYCIN 300 MG/5 ML INH SCH (20:02)
[2022-02-22] MEDS: methylPREDNISolone SOD SUCC 40 mg/ml 1 ml VIAL IV SCH ×2 (01:52→12:42)
[2022-02-22] MEDS: Albuterol/Ipratropium NEB.SOL (2.5/0.5 MG) 3 ML NEB.SOLN INH SCH ×6 (03:15→23:14)
[2022-02-22] MEDS: Acetylcysteine INHALATION SOL 200 MG/ML NEB.SOLN 10 ML INH SCH ×6 (03:15→23:14)
[2022-02-22] MEDS: Enoxaparin 80 MG/0.8 ML SYR SUBCUT SCH ×2 (04:28→16:13)
[2022-02-22 04:49] LABS: ABS Lymphocytes 0.1 10^3/ul (1.0-4.8); ABS Monocytes 0.2 10^3/ul (0-0.8); ABS Neutrophils 4.7 10^3/ul (1.5-7.7); Eosinophil % 0.1 %; Hematocrit 27 % (42-52); Hemoglobin 8.7 g/dL (14.0-18.0); Lymphocyte % 1.6 %; Mean Corpuscular HGB Conc 32 g/dL (31-36); Mean Corpuscular Hemoglobin 32 pg (27-31); Mean Corpuscular Volume 98 fL (80-94); Mean Platelet Volume 9.8 fL (7.4-10.4); Platelet Count 66 10^3/uL (150-450); Red Blood Count 2.74 10^6 /uL (4.18-5.48); Red Cell Distribution Width 21 % (10-15)
[2022-02-22 05:03] LABS: Calcium 8.4 mg/dL (8.6-10.3); Magnesium 1.8 mg/dL (1.9-2.7); Phosphorus 2.5 mg/dL (2.5-5.0); eGFR CKD-EPI 129.7 (>60)
[2022-02-22] MEDS: ZOSYN 3.375 GM Q8H per EXTENDED INFUSION IV SCH (05:45)
[2022-02-22] MEDS: Mometasone/Formoter 200/5 MDI INH SCH ×2 (07:15→19:34)
[2022-02-22] MEDS: Acetylcysteine INH SOL (RT) 200 MG/ML 4 ML VIAL INH ONE ×2 (07:17→07:45)
[2022-02-22] MEDS ORDERED: Magnesium Sulfate 2 gm BAG 2 GM/50 ML BAG IVPB ONE (07:42)
[2022-02-22] MEDS: TOBRAMYCIN 300 MG/5 ML INH SCH ×3 (09:04→19:34)
[2022-02-22] MEDS: Carbamide Peroxide 6.5% OTIC 15 ML BTL BOTH EARS SCH ×2 (09:43→21:02)
[2022-02-22] MEDS: Aspirin EC 81 mg TAB.EC (enteric coated) PO SCH (09:44)
[2022-02-22] MEDS: Nystatin TOP POWDER 15 GM BTL TOPICAL SCH ×2 (09:44→22:52)
[2022-02-22] MEDS: Magic MouthWash2-BEN/MAAL/LIDO/NYST 240 ML BTL (alt formulation) SWISH SPIT SCH ×4 (09:46→22:52)
[2022-02-23] MEDS: methylPREDNISolone SOD SUCC 40 mg/ml 1 ml VIAL IV SCH ×2 (01:37→15:02)
[2022-02-23] MEDS: Acetylcysteine INHALATION SOL 200 MG/ML NEB.SOLN 10 ML INH SCH ×6 (03:17→23:37)
[2022-02-23] MEDS: Albuterol/Ipratropium NEB.SOL (2.5/0.5 MG) 3 ML NEB.SOLN INH SCH ×6 (03:18→23:37)
[2022-02-23 03:39] LABS: ABS Lymphocytes 0.1 10^3/ul (1.0-4.8); ABS Monocytes 0.2 10^3/ul (0-0.8); Eosinophil % 0.1 %; Hematocrit 28 % (42-52); Hemoglobin 9.2 g/dL (14.0-18.0); Lymphocyte % 2.5 %; Mean Corpuscular HGB Conc 32 g/dL (31-36); Mean Corpuscular Hemoglobin 32 pg (27-31); Mean Corpuscular Volume 99 fL (80-94); Mean Platelet Volume 8.9 fL (7.4-10.4); Platelet Count 66 10^3/uL (150-450); Red Blood Count 2.85 10^6 /uL (4.18-5.48); Red Cell Distribution Width 21 % (10-15); White Blood Count 5.4 10^3/uL (3.5-10.8)
[2022-02-23] MEDS: Enoxaparin 80 MG/0.8 ML SYR SUBCUT SCH ×2 (03:52→15:02)
[2022-02-23 04:04] LABS: Calcium 8.7 mg/dL (8.6-10.3); Potassium 3.9 mmol/L (3.5-5.0); eGFR CKD-EPI 127.8 (>60)
[2022-02-23] MEDS ORDERED: Magnesium Sulfate IV 1GM/100ML 1 GM/100 ML BAG IV ONE (04:08)
[2022-02-23] MEDS ORDERED: Acetylcysteine INH SOL (RT) 200 MG/ML 4 ML VIAL INH ONE (07:12)
[2022-02-23] MEDS: Mometasone/Formoter 200/5 MDI INH SCH ×2 (07:31→20:08)
[2022-02-23] MEDS: Aspirin EC 81 mg TAB.EC (enteric coated) PO SCH (07:57)
[2022-02-23] MEDS: Carbamide Peroxide 6.5% OTIC 15 ML BTL BOTH EARS SCH ×2 (07:58→21:33)
[2022-02-23] MEDS: Magic MouthWash2-BEN/MAAL/LIDO/NYST 240 ML BTL (alt formulation) SWISH SPIT SCH ×4 (08:02→21:35)
[2022-02-23] MEDS: Nystatin TOP POWDER 15 GM BTL TOPICAL SCH ×2 (08:03→21:34)
[2022-02-23] MEDS ORDERED: Darbepoetin Alfa Albumen Free 500 MCG/ML SYRINGE SUBCUT SCH (09:00)
[2022-02-23] MEDS: TOBRAMYCIN 300 MG/5 ML INH SCH ×2 (09:28→20:08)
[2022-02-23] MEDS ORDERED: Acetylcysteine ORAL SOL 200 mg/ml 30 ml VIAL ONE (11:15)
[2022-02-24] MEDS: methylPREDNISolone SOD SUCC 40 mg/ml 1 ml VIAL IV SCH ×2 (00:38→12:02)
[2022-02-24] MEDS: Acetylcysteine INHALATION SOL 200 MG/ML NEB.SOLN 10 ML INH SCH ×2 (03:09→07:39)
[2022-02-24] MEDS: Albuterol/Ipratropium NEB.SOL (2.5/0.5 MG) 3 ML NEB.SOLN INH SCH ×6 (03:09→23:39)
[2022-02-24] MEDS: Enoxaparin 80 MG/0.8 ML SYR SUBCUT SCH ×2 (04:39→16:26)
[2022-02-24 05:24] LABS: ABS Lymphocytes 0.1 10^3/ul (1.0-4.8); ABS Monocytes 0.2 10^3/ul (0-0.8); Hematocrit 29 % (42-52); Hemoglobin 9.3 g/dL (14.0-18.0); Lymphocyte % 2.3 %; Mean Corpuscular HGB Conc 33 g/dL (31-36); Mean Corpuscular Hemoglobin 32 pg (27-31); Mean Corpuscular Volume 99 fL (80-94); Mean Platelet Volume 9.8 fL (7.4-10.4); Nucleated Red Blood Cells % 0.1; Platelet Count 82 10^3/uL (150-450); Red Cell Distribution Width 22 % (10-15); White Blood Count 4.3 10^3/uL (3.5-10.8)
[2022-02-24 06:04] LABS: Calcium 8.9 mg/dL (8.6-10.3); Potassium 4.6 mmol/L (3.5-5.0); eGFR CKD-EPI 137.4 (>60)
[2022-02-24] MEDS: Mometasone/Formoter 200/5 MDI INH SCH ×3 (07:39→19:20)
[2022-02-24] MEDS: Aspirin EC 81 mg TAB.EC (enteric coated) PO SCH (08:39)
[2022-02-24] MEDS: Magic MouthWash2-BEN/MAAL/LIDO/NYST 240 ML BTL (alt formulation) SWISH SPIT SCH ×4 (08:40→20:55)
[2022-02-24] MEDS: Nystatin TOP POWDER 15 GM BTL TOPICAL SCH ×2 (08:40→21:00)
[2022-02-24] MEDS: Carbamide Peroxide 6.5% OTIC 15 ML BTL BOTH EARS SCH ×2 (08:40→20:56)
[2022-02-24] MEDS: TOBRAMYCIN 300 MG/5 ML INH SCH ×2 (10:14→19:12)
[2022-02-24] MEDS ORDERED: Acetylcysteine INHALATION SOL 200 MG/ML NEB.SOLN 10 ML INH PRN (10:58)
[2022-02-25] MEDS: methylPREDNISolone SOD SUCC 40 mg/ml 1 ml VIAL IV SCH ×2 (01:25→12:08)
[2022-02-25] MEDS ORDERED: Morphine 2 MG/ML SYRINGE IV PRN (03:36)
[2022-02-25] MEDS: Albuterol/Ipratropium NEB.SOL (2.5/0.5 MG) 3 ML NEB.SOLN INH SCH ×6 (03:37→22:49)
[2022-02-25] MEDS: Enoxaparin 80 MG/0.8 ML SYR SUBCUT SCH ×2 (03:47→14:59)
[2022-02-25 04:55] LABS: ABS Lymphocytes 0.1 10^3/ul (1.0-4.8); ABS Monocytes 0.2 10^3/ul (0-0.8); ABS Neutrophils 5.4 10^3/ul (1.5-7.7); Hematocrit 27 % (42-52); Hemoglobin 8.9 g/dL (14.0-18.0); Lymphocyte % 1.6 %; Mean Corpuscular HGB Conc 33 g/dL (31-36); Mean Corpuscular Hemoglobin 32 pg (27-31); Mean Corpuscular Volume 99 fL (80-94); Mean Platelet Volume 9.3 fL (7.4-10.4); Nucleated Red Blood Cells % 0.1; Platelet Count 89 10^3/uL (150-450); Red Blood Count 2.76 10^6 /uL (4.18-5.48); Red Cell Distribution Width 22 % (10-15); White Blood Count 5.7 10^3/uL (3.5-10.8)
[2022-02-25 05:34] LABS: Calcium 8.8 mg/dL (8.6-10.3); Potassium 4.4 mmol/L (3.5-5.0)
[2022-02-25] MEDS ORDERED: Morphine ORAL CONCENTRATE 5 MG/0.25 ML ORAL.SYRIN SL PRN (07:50)
[2022-02-25] MEDS: Mometasone/Formoter 200/5 MDI INH SCH ×2 (08:14→19:16)
[2022-02-25] MEDS: TOBRAMYCIN 300 MG/5 ML INH SCH (08:17)
[2022-02-25] MEDS: Aspirin EC 81 mg TAB.EC (enteric coated) PO SCH (08:37)
[2022-02-25] MEDS: Magic MouthWash2-BEN/MAAL/LIDO/NYST 240 ML BTL (alt formulation) SWISH SPIT SCH ×4 (08:38→22:00)
[2022-02-25] MEDS: Nystatin TOP POWDER 15 GM BTL TOPICAL SCH ×3 (08:38→22:00)
[2022-02-25] MEDS: Carbamide Peroxide 6.5% OTIC 15 ML BTL BOTH EARS SCH (08:38)
[2022-02-25] MEDS: Morphine ORAL CONCENTRATE 5 MG/0.25 ML ORAL.SYRIN SL PRN ×2 (15:45→21:45)
[2022-02-25] MEDS: Morphine 2 MG/ML SYRINGE IV PRN (21:45)
[2022-02-26] MEDS: Metoprolol Tartrate 5 mg VIAL 5 ml VIAL (1 mg/ml) IV PRN ×2 (02:58→17:38)
[2022-02-26] MEDS: methylPREDNISolone SOD SUCC 40 mg/ml 1 ml VIAL IV SCH ×2 (02:58→14:13)
[2022-02-26] MEDS: Albuterol/Ipratropium NEB.SOL (2.5/0.5 MG) 3 ML NEB.SOLN INH SCH ×5 (03:07→19:02)
[2022-02-26] MEDS: Morphine 2 MG/ML SYRINGE IV PRN ×4 (03:26→22:41)
[2022-02-26] MEDS: Enoxaparin 80 MG/0.8 ML SYR SUBCUT SCH ×2 (03:27→17:56)
[2022-02-26 06:18] LABS: Hematocrit 33 % (42-52); Hemoglobin 10.9 g/dL (14.0-18.0); Mean Corpuscular HGB Conc 33 g/dL (31-36); Mean Corpuscular Hemoglobin 33 pg (27-31); Mean Corpuscular Volume 100 fL (80-94); Mean Platelet Volume 9.2 fL (7.4-10.4); Platelet Count 94 10^3/uL (150-450); Red Blood Count 3.34 10^6 /uL (4.18-5.48); Red Cell Distribution Width 22 % (10-15); White Blood Count 4.9 10^3/uL (3.5-10.8)
[2022-02-26 07:15] LABS: Calcium 9.2 mg/dL (8.6-10.3); Potassium 4.4 mmol/L (3.5-5.0)
[2022-02-26] MEDS: Mometasone/Formoter 200/5 MDI INH SCH ×2 (07:16→19:02)
[2022-02-26 07:52] LABS: ABS Lymphocytes 0.1 10^3/ul (1.0-4.8); ABS Monocytes 0.1 10^3/ul (0-0.8); ABS Neutrophils 4.7 10^3/ul (1.5-7.7); Eosinophil % 0.1 %; Lymphocyte % 1.8 %; Nucleated Red Blood Cells % 0.3
[2022-02-26] MEDS: Aspirin EC 81 mg TAB.EC (enteric coated) PO SCH (09:03)
[2022-02-26] MEDS: Nystatin TOP POWDER 15 GM BTL TOPICAL SCH ×2 (09:05→21:31)
[2022-02-26] MEDS: Magic MouthWash2-BEN/MAAL/LIDO/NYST 240 ML BTL (alt formulation) SWISH SPIT SCH ×4 (10:15→21:31)
[2022-02-26] MEDS: Morphine ORAL CONCENTRATE 5 MG/0.25 ML ORAL.SYRIN SL PRN (15:12)
[2022-02-26] MEDS ORDERED: Morphine ORAL CONCENTRATE 5 MG/0.25 ML ORAL.SYRIN SL PRN (16:53)
[2022-02-26] MEDS ORDERED: Morphine 2 MG/ML SYRINGE IV PRN (16:54)
[2022-02-26] MEDS ORDERED: Naloxone 0.4 mg VIAL 0.4 mg/ml 1 ml VIAL IV PUSH ONE (17:48)
[2022-02-26] MEDS ORDERED: Naloxone 0.4 mg VIAL 0.4 mg/ml 1 ml VIAL ONE (17:54)
[2022-02-26] MEDS ORDERED: LORazepam 2 mg VIAL 1 ml IV PUSH PRN (19:28)
[2022-02-26] MEDS ORDERED: Senna TAB 8.6 mg TAB PO PRN (19:28)
[2022-02-26] MEDS ORDERED: Ondansetron 4 mg VIAL 2 MG/ML 2 ml VIAL IV PRN (19:28)
[2022-02-26] MEDS ORDERED: Polyethylene Glycol 3350 17 GM PACKET PO PRN (19:28)
[2022-02-26] MEDS ORDERED: Lorazepam PYXIS KEY PRN (19:38)
[2022-02-26] MEDS ORDERED: Scopolamine 1 mg/72hr PATCH TRANSDERM SCH (20:00)
[2022-02-26] MEDS ORDERED: LORazepam 2 mg VIAL 1 ml IV PUSH ONE (20:54)
[2022-02-26] MEDS ORDERED: Morphine 4 MG/ML VIAL (1 ml) IV ONE (21:00)
[2022-02-26] MEDS ORDERED: Lorazepam PYXIS KEY ONE (21:01)
[2022-02-26] MEDS ORDERED: Morphine 4 MG/ML VIAL (1 ml) ONE (21:02)
[2022-02-26] MEDS ORDERED: LORazepam 2 mg VIAL 1 ml ONE (21:02)
[2022-02-26 21:18] VITALS: BP 103/67
== END 2022-02-26 23:03 | disposition expired | DRG 720 ==
LOC: ED 18:07 → SUATTDRO 02-07 07:33 → EDHOLD 02-07 07:33 → MEDTELE 02-07 09:35 → ICU 02-08 08:57
PROVIDERS: ADMIT Internal Medicine; ATTEND Internal Medicine Critical Care Medicine